=== PATIENT | female | born 1970 | race Caucasian/White ===

== ENCOUNTER 2016-12-16 18:20 | Observation (INO) ==
[2016-12-16] MEDS ORDERED: methylPREDNISolone 125 MG/2 ML VIAL IVP ONE (18:30)
[2016-12-16] MEDS ORDERED: Ipratropium/Albuterol Neb 3 ML IH ONE (18:30)
[2016-12-16] MEDS ORDERED: 0.9 % Sodium Chloride 1,000 ML IVC ONE (18:30)
--- NOTE | 2016-12-16 18:36 | Emergency Department Note ---
Disposition Clinical Impression: Acute exacerbation of chronic obstructive airways disease Disposition: Still a Patient Condition: Good Referrals: NONE,PCP [Primary Care Provider] - Forms: ED Satisfaction Letter SOB HPI - General Chief Complaint: ED Shortness of Breath/Dyspnea Stated Complaint: MISAEL Time Seen by Provider: 12/16/16 18:29 Source: patient, EMS Mode of arrival: EMS Limitations: no limitations Nursing Notes Reviewed: Yes Vital Signs Reviewed: Yes - History of Present Illness Patient presents to the ED via EMS with shortness of breath that started yesterday. Has a history of COPD, continues to smoke, not home O2 dependent. Subjective fever at home, productive yellow cough. Some chest tightness. States she has had pneumonia before and feels like she has it again. No pain or swelling in her legs. No history of DVT or PE. - Related Data Home Medications Medication Instructions Recorded Confirmed Alprazolam [Xanax] 1 mg PO TID 01/21/15 11/09/15 Gabapentin [Neurontin] 300 mg PO TID 01/21/15 11/09/15 Lansoprazole [Prevacid] 30 mg PO DAILY 01/21/15 11/09/15 Fluticasone/Vilanterol [Breo 1 each IH DAILY 07/31/15 11/09/15 Ellipta 200-25 Mcg INH] RisperiDONE-M [RisperDAL M-TAB] 1 mg PO DAILY 07/31/15 11/09/15 Methocarbamol [Robaxin] 500 mg PO Q8HR 11/09/15 11/09/15 Previous Rx's Medication Instructions Recorded Naproxen [EC-Naprosyn] 375 mg PO TID PRN #21 tablet. 11/09/15 Allergies Allergy/AdvReac Type Severity Reaction Status Date / Time morphine Allergy Hives Verified 12/16/16 18:33 Penicillins [PCN] Allergy Hives Verified 12/16/16 18:33 Sulfa (Sulfonamide Allergy Abdominal Verified 12/16/16 18:33 Antibiotics) Pain All systems ED: reviewed and negative except as stated. Constitutional: Reports: fever Cardiovascular: Reports: chest pain Respiratory: Reports: cough, dyspnea, sputum production Gastrointestinal: Denies: abdominal pain Musculoskeletal: Denies: back pain Neurological: Denies: headache Past Medical History - Past Medical History Attestation: Yes The following information was validated with the patient. 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 Absent: normal lung sounds bilaterally - Cardiovascular Cardiovascular exam: Present: regular rate, normal rhythm, normal heart sounds - Abdominal Exam Abdominal exam: Present: soft, Non-Tender. Absent: tenderness, distention, guarding, rebound, rigidity - Extremities Exam Extremities exam: Present: normal inspection, full ROM. Absent: tenderness, pedal edema - Neurological Exam Neurological exam: Present: alert, oriented X3 - Psychiatric Psychiatric exam: Present: normal affect, normal mood - Skin Skin exam: Present: warm, dry, intact, normal color Course - Reevaluation(s) Reevaluation #1: Patient will be signed out to the nighttime team. Vitals stable Vital Signs Temperature 97.8 F 12/16/16 18:24 Pulse Rate 98 12/16/16 18:24 Respiratory Rate 22 12/16/16 18:24 Blood Pressure 112/87 12/16/16 18:24 O2 Sat by Pulse Oximetry 95 12/16/16 18:24 Temperature 97.8 F 12/16/16 18:24 Pulse Rate 98 12/16/16 18:24 Respiratory Rate 20 12/16/16 19:05 Blood Pressure 108/89 12/16/16 19:05 O2 Sat by Pulse Oximetry 97 12/16/16 19:05 Oxygen Delivery Oxygen Delivery Nasal Cannula Shortness of Breath/Dyspnea - Lab Data Result diagrams: 12/16/16 18:46 12/16/16 18:46 Lab Results 12/16/16 12/16/16 12/16/16 Range/Units 18:46 18:46 18:46 WBC 12.4 H (4.3-11.1) K/mcL RBC 4.07 (3.82-4.97) M/mcL Hgb 13.0 (11.5-15.4) g/dL Hct 37.7 (35.3-44.9) % MCV 92.6 (83.0-100.0) fL MCH 31.9 (28.0-33.3) pg MCHC 34.5 (31.6-35.5) g/dL RDW 11.6 (11.5-14.5) % Plt Count 271 (140-400) K/mcL MPV 9.8 (9.4-12.4) fL Immature Gran % 0.2 (0-4) % Seg Neutrophils % 68.0 % Lymphocytes % 24.7 % Monocytes % 5.6 % Eosinophils % 1.3 % Basophils % 0.2 % Neutrophils # 8.5 (1.6-8.9) K/mcL Lymphocytes # 3.1 (0.6-4.6) K/mcL Monocytes # 0.7 (0.0-1.3) K/mcL Eosinophils # 0.2 (0.0-0.6) K/mcL Basophils # 0.0 (0.0-0.2) K/mcL Sodium 136 (136-145) mEq/L Potassium 3.6 (3.5-4.5) mEq/L Chloride 106 (98-109) mEq/L Carbon Dioxide 22 (19-29) mEq/L BUN 11 (7-20) mg/dL Creatinine 0.72 (0.57-1.11) mg/dL Est GFR ( Amer) > 60 (> 60) Est GFR (Non-Af Amer) > 60 (> 60) BUN/Creatinine Ratio 15 (6-26) Glucose 105 H (70-99) mg/dL Calculated Osmolality 282 (280-300) Lactic Acid 1.0 (0.5-2.2) mmol/L Calcium 8.8 (8.6-10.8) mg/dL Troponin I (0-0.03) ng/mL B-Natriuretic Peptide (0-100) pg/mL 12/16/16 12/16/16 Range/Units 18:46 18:46 WBC (4.3-11.1) K/mcL RBC (3.82-4.97) M/mcL Hgb (11.5-15.4) g/dL Hct (35.3-44.9) % MCV (83.0-100.0) fL MCH (28.0-33.3) pg MCHC (31.6-35.5) g/dL RDW (11.5-14.5) % Plt Count (140-400) K/mcL MPV (9.4-12.4) fL Immature Gran % (0-4) % Seg Neutrophils % % Lymphocytes % % Monocytes % % Eosinophils % % Basophils % % Neutrophils # (1.6-8.9) K/mcL Lymphocytes # (0.6-4.6) K/mcL Monocytes # (0.0-1.3) K/mcL Eosinophils # (0.0-0.6) K/mcL Basophils # (0.0-0.2) K/mcL Sodium (136-145) mEq/L Potassium (3.5-4.5) mEq/L Chloride (98-109) mEq/L Carbon Dioxide (19-29) mEq/L BUN (7-20) mg/dL Creatinine (0.57-1.11) mg/dL Est GFR ( Amer) (> 60) Est GFR (Non-Af Amer) (> 60) BUN/Creatinine Ratio (6-26) Glucose (70-99) mg/dL Calculated Osmolality (280-300) Lactic Acid (0.5-2.2) mmol/L Calcium (8.6-10.8) mg/dL Troponin I 0.00 (0-0.03) ng/mL B-Natriuretic Peptide < 10 (0-100) pg/mL Attestation Statement - Attestation Attestation: I, Rogelio Fowler, examined this patient and my medical decision-making was reviewed with the TRIMMING CUTTER/PA/Advanced Practice Nurse/Resident Physician. I agree with the documented findings, disposition and treatment plan as described except to the extent set forth below. 46-year-old female presents to emergency department with increased shortness of breath. Patient feels like this is similar to her previous pneumonia. Patient denies recent syncopal symptoms. Denies chest pain. At the end of my shift patient is pending laboratory and imaging evaluations. Patient will be signed out to Dr. Graves pending reevaluation, imaging, labs, and disposition.
[2016-12-16 18:53] LABS: Basophils % 0.2 %; Eosinophils # 0.2 K/mcL (0.0-0.6); Eosinophils % 1.3 %; Hematocrit 37.7 % (35.3-44.9); Immature Granulocytes % 0.2 % (0-4); Lymphocytes # 3.1 K/mcL (0.6-4.6); Lymphocytes % 24.7 %; Mean Corpuscular HGB Conc 34.5 g/dL (31.6-35.5); Mean Corpuscular Hemoglobin 31.9 pg (28.0-33.3); Mean Corpuscular Volume 92.6 fL (83.0-100.0); Mean Platelet Volume 9.8 fL (9.4-12.4); Monocytes # 0.7 K/mcL (0.0-1.3); Monocytes % 5.6 %; Neutrophils # 8.5 K/mcL (1.6-8.9); Platelet Count 271 K/mcL (140-400); Red Blood Count 4.07 M/mcL (3.82-4.97); Red Cell Distribution Width 11.6 % (11.5-14.5)
[2016-12-16 19:06] LABS: BUN/Creatinine Ratio 15 (6-26); Blood Urea Nitrogen 11 mg/dL (7-20); Calcium 8.8 mg/dL (8.6-10.8); Carbon Dioxide 22 mEq/L (19-29); Chloride 106 mEq/L (98-109); Glucose 105 mg/dL (70-99); Osmolality,Calculated 282 (280-300); Potassium 3.6 mEq/L (3.5-4.5); Sodium 136 mEq/L (136-145); eGFR For African Americans > 60 (> 60); eGFR For Non-African Americans > 60 (> 60)
[2016-12-16 20:00] LABS: Bilirubin,Urine Negative (Negative); Blood,Urine Negative (Negative); Clarity,Urine Clear (Clear); Color,Urine Yellow (Yellow); Glucose,Urine (UA) Normal (Normal); Ketones,Urine Negative (Negative); Leukocyte Esterase,Urine Negative (Negative); Nitrite,Urine Negative (Negative); Protein,Urine Negative (Neg-Trace); Specific Gravity,Urine 1.012 (1.010-1.025); Urobilinogen,Urine Normal (Normal)
[2016-12-16] MEDS ORDERED: Albuterol Neb 7.5 MG, Sodium Chloride for inhalation 12 ML IH ONE (20:14)
--- NOTE | 2016-12-16 20:23 | Emergency Department Note ---
Disposition Clinical Impression: Acute exacerbation of chronic obstructive airways disease Disposition: Admitted As Inpatient Condition: Fair Forms: ED Satisfaction Letter Time of Disposition: 22:47 SOB HPI - General Chief Complaint: ED Shortness of Breath/Dyspnea Stated Complaint: MISAEL Time Seen by Provider: 12/16/16 18:29 Source: patient, EMS Mode of arrival: EMS Limitations: no limitations Nursing Notes Reviewed: Yes Vital Signs Reviewed: Yes - Related Data Home Medications Medication Instructions Recorded Confirmed Alprazolam [Xanax] 1 mg PO TID 01/21/15 11/09/15 Gabapentin [Neurontin] 300 mg PO TID 01/21/15 11/09/15 Lansoprazole [Prevacid] 30 mg PO DAILY 01/21/15 11/09/15 Fluticasone/Vilanterol [Breo 1 each IH DAILY 07/31/15 11/09/15 Ellipta 200-25 Mcg INH] RisperiDONE-M [RisperDAL M-TAB] 1 mg PO DAILY 07/31/15 11/09/15 Methocarbamol [Robaxin] 500 mg PO Q8HR 11/09/15 11/09/15 Previous Rx's Medication Instructions Recorded Naproxen [EC-Naprosyn] 375 mg PO TID PRN #21 tablet. 11/09/15 Allergies Allergy/AdvReac Type Severity Reaction Status Date / Time morphine Allergy Hives Verified 12/16/16 18:33 Penicillins [PCN] Allergy Hives Verified 12/16/16 18:33 Sulfa (Sulfonamide Allergy Abdominal Verified 12/16/16 18:33 Antibiotics) Pain Constitutional: Reports: fever Cardiovascular: Reports: chest pain Respiratory: Reports: cough, dyspnea, sputum production Gastrointestinal: Denies: abdominal pain Musculoskeletal: Denies: back pain Neurological: Denies: headache Past Medical History - Past Medical History Medical history: Reports: asthma, COPD Surgical history: Reports: cholecystectomy, herniorrhaphy Psychiatric history: Reports: anxiety, bipolar, depression, panic disorder 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 Isabel and Dr. Fowler. Please refer to their notes for complete details of the history and physical examination. Patient is a 46-year-old female with history of COPD who continues to smoke. She presents complaining of increased shortness of breath and wheezing and cough for about one week but acutely worse today. She states that she did cough up some blood a few days ago. She is now coughing up green colored sputum. She has had subjective fever. No chest pain. On examination patient has diffuse tight bilateral expiratory wheezes with decreased breath sounds bilaterally. Heart regular rate and rhythm. Abdomen is soft and nontender with normal bowel sounds. No pedal edema. - Reevaluation(s) Reevaluation #1: After receiving IV Medrol and 3 DuoNeb treatments patient was reevaluated. She continues to have diffuse tight bilateral expiratory wheezes. Continues to have labored breathing. She does say that she feels a little better but does not feel that she can go home like this. She does not have home oxygen. Her oxygen cannula was removed and she does maintain an O2 sat of 92%-94% on room air. She was placed back on the oxygen by nasal cannula and will be given an hour-long albuterol nebulizer and reevaluated. Time: 20:10 Reevaluation #2: Patient completed her 1 hour albuterol nebulizer. On reexamination she continues to have diffuse tight bilateral expiratory wheezes with visibly labored respirations. Her oxygen saturation is 92% on room air. Patient still coughing frequently and states she does not feel she can go home like this. I will consult the hospitalist for admission. Time: 22:40 - Consultations Consultation #1: The hospitalist, Dr. Joel, was consulted and accepted admission of the patient. Time: 22:47 Vital Signs Temperature 97.8 F 12/16/16 18:24 Pulse Rate 98 12/16/16 18:24 Respiratory Rate 22 12/16/16 18:24 Blood Pressure 112/87 12/16/16 18:24 O2 Sat by Pulse Oximetry 95 12/16/16 18:24 Temperature 97.8 F 12/16/16 18:24 Pulse Rate 98 12/16/16 22:00 Respiratory Rate 20 12/16/16 20:37 Blood Pressure 109/73 12/16/16 22:00 O2 Sat by Pulse Oximetry 96 12/16/16 22:00 Oxygen Delivery Oxygen Delivery Nasal Cannula Shortness of Breath/Dyspnea - Medical Records Medical records reviewed: Yes I reviewed the patient's medical records. - Lab Data Lab results reviewed: Yes I reviewed the patient's lab results. Result diagrams: 12/16/16 18:46 12/16/16 18:46 Lab Results 12/16/16 12/16/16 12/16/16 Range/Units 18:46 18:46 18:46 WBC 12.4 H (4.3-11.1) K/mcL RBC 4.07 (3.82-4.97) M/mcL Hgb 13.0 (11.5-15.4) g/dL Hct 37.7 (35.3-44.9) % MCV 92.6 (83.0-100.0) fL MCH 31.9 (28.0-33.3) pg MCHC 34.5 (31.6-35.5) g/dL RDW 11.6 (11.5-14.5) % Plt Count 271 (140-400) K/mcL MPV 9.8 (9.4-12.4) fL Immature Gran % 0.2 (0-4) % Seg Neutrophils % 68.0 % Lymphocytes % 24.7 % Monocytes % 5.6 % Eosinophils % 1.3 % Basophils % 0.2 % Neutrophils # 8.5 (1.6-8.9) K/mcL Lymphocytes # 3.1 (0.6-4.6) K/mcL Monocytes # 0.7 (0.0-1.3) K/mcL Eosinophils # 0.2 (0.0-0.6) K/mcL Basophils # 0.0 (0.0-0.2) K/mcL Sodium 136 (136-145) mEq/L Potassium 3.6 (3.5-4.5) mEq/L Chloride 106 (98-109) mEq/L Carbon Dioxide 22 (19-29) mEq/L BUN 11 (7-20) mg/dL Creatinine 0.72 (0.57-1.11) mg/dL Est GFR ( Amer) > 60 (> 60) Est GFR (Non-Af Amer) > 60 (> 60) BUN/Creatinine Ratio 15 (6-26) Glucose 105 H (70-99) mg/dL Calculated Osmolality 282 (280-300) Lactic Acid 1.0 (0.5-2.2) mmol/L Calcium 8.8 (8.6-10.8) mg/dL Troponin I (0-0.03) ng/mL B-Natriuretic Peptide (0-100) pg/mL Urine Color (Yellow) Urine Clarity (Clear) Urine pH (5.0-8.0) pH Units Ur Specific [place] (1.010-1.025) Urine Protein (Neg-Trace) mg/dL Urine Glucose (UA) (Normal) mg/dL Urine Ketones (Negative) mg/dL Urine Blood (Negative) Urine Nitrite (Negative) Urine Bilirubin (Negative) Urine Urobilinogen (Normal) mg/dL Ur Leukocyte Esterase (Negative) Ur Culture Indicated? (NO) 12/16/16 12/16/16 12/16/16 Range/Units 18:46 18:46 19:52 WBC (4.3-11.1) K/mcL RBC (3.82-4.97) M/mcL Hgb (11.5-15.4) g/dL Hct (35.3-44.9) % MCV (83.0-100.0) fL MCH (28.0-33.3) pg MCHC (31.6-35.5) g/dL RDW (11.5-14.5) % Plt Count (140-400) K/mcL MPV (9.4-12.4) fL Immature Gran % (0-4) % Seg Neutrophils % % Lymphocytes % % Monocytes % % Eosinophils % % Basophils % % Neutrophils # (1.6-8.9) K/mcL Lymphocytes # (0.6-4.6) K/mcL Monocytes # (0.0-1.3) K/mcL Eosinophils # (0.0-0.6) K/mcL Basophils # (0.0-0.2) K/mcL Sodium (136-145) mEq/L Potassium (3.5-4.5) mEq/L Chloride (98-109) mEq/L Carbon Dioxide (19-29) mEq/L BUN (7-20) mg/dL Creatinine (0.57-1.11) mg/dL Est GFR ( Amer) (> 60) Est GFR (Non-Af Amer) (> 60) BUN/Creatinine Ratio (6-26) Glucose (70-99) mg/dL Calculated Osmolality (280-300) Lactic Acid (0.5-2.2) mmol/L Calcium (8.6-10.8) mg/dL Troponin I 0.00 (0-0.03) ng/mL B-Natriuretic Peptide < 10 (0-100) pg/mL Urine Color Yellow (Yellow) Urine Clarity Clear (Clear) Urine pH 6.0 (5.0-8.0) pH Units Ur Specific [place] 1.012 (1.010-1.025) Urine Protein Negative (Neg-Trace) mg/dL Urine Glucose (UA) Normal (Normal) mg/dL Urine Ketones Negative (Negative) mg/dL Urine Blood Negative (Negative) Urine Nitrite Negative (Negative) Urine Bilirubin Negative (Negative) Urine Urobilinogen Normal (Normal) mg/dL Ur Leukocyte Esterase Negative (Negative) Ur Culture Indicated? NO (NO) - Radiology Data Radiology results reviewed: Yes I reviewed the patient's radiology results. Chest X-Ray 12/16/16 18:30 IMPRESSION: Negative chest. D/ / Kody Santillan MD / Kody Santillan MD Interpreting Provider: Kody Santillan MD - EKG Data EKG attestation: Yes I reviewed and interpreted this EKG. EKG shows normal: Reports: sinus rhythm Rate: Reports: tachycardia Interpretation: Reports: no acute changes
[2016-12-17] MEDS ORDERED: Naloxone 0.4 MG/ML INJ IVP PRN (00:14)
[2016-12-17] MEDS ORDERED: Acetaminophen 325 MG TABLET PO PRN (00:14)
[2016-12-17] MEDS ORDERED: Ondansetron 4 MG/2 ML VIAL IVP PRN (00:14)
--- NOTE | 2016-12-17 00:20 | Internal Med History&Physical ---
Date of Encounter: 12/17/16 Time of Encounter: 00:15 Assessment and Plan (1) Acute exacerbation of chronic obstructive airways disease Current visit: Yes Status: Acute Acute on chronic respiratory failure - secondary to acute exacerbation of COPD with probable Acute Bronchitis Continue DuoNeb breathing treatment, empiric IV Rocephin IV Solu-Medrol, Symbicort, O2 via nasal cannula Chest x-ray - negative Troponin - negative Cultures - pending Cardiac telemetry, continuous pulse ox, continue to monitor closely (2) Bipolar disorder Current visit: Yes Status: Chronic Continue home dose of Risperdal Qualifiers: Active/Remission status: currently active Current bipolar episode type: depressed Psychotic features: without psychotic features Qualified Code(s): F31.4 - Bipolar disorder, current episode depressed, severe, without psychotic features (3) Tobacco abuse Current visit: Yes Status: Chronic Counseled about cessation, nicotine patch (4) DVT prophylaxis Current visit: Yes Status: Acute Continue heparin subcutaneous Internal Medicine - H&P: HPI Chief complaint: Shortness of breath Admitted From: Emergency Dept Plans for Post Hospital Care: Home History of present illness: Ms. Preston is a 46 year old female COPD, anxiety, depression and bipolar disorder. Patient presents to the ED with complaints of shortness of breath. Examined in the room. Patient is awake and alert. She is in mild distress. She is able to provide history. No family members at bedside. Patient states her shortness of breath started about 1 week ago. Symptoms gradually worsened. She also complains of productive cough with green colored sputum. She does not use oxygen at home. She states she tried to use her nebulizer, but it did not help. She decided to come in today because symptoms were worsening. Patient denies chest pain or palpitations. Denies headache or vomiting or dizziness or fever. Symptoms are worse with exertion. No alleviating factors. No other associated symptoms. No other acute complaints. Initial workup in the ED is significant for acute COPD exacerbation. Patient required multiple DuoNeb breathing treatments. She was also given IV Solu- Medrol. Patient is being admitted for acute COPD exacerbation. CODE STATUS full code. Past Med Surg Social Fam HX - Past Medical History Medical history: asthma, COPD Psychiatric history: anxiety, bipolar, depression, panic disorder - Past Surgical History Surgical History: cholecystectomy, herniorrhaphy - Social History Smoking Status: Current every day smoker Packs per day: 1.5 Smokeless Tobacco Status: No Alcohol use: none Drug use: none - Family History Mother Hx Family Respiratory Disorders: Yes Internal Medicine - H&P: Meds Alprazolam [Xanax] 1 mg PO TID 01/21/15 [History] Gabapentin [Neurontin] 300 mg PO TID 01/21/15 [History] Lansoprazole [Prevacid] 30 mg PO DAILY 01/21/15 [History] Fluticasone/Vilanterol [Breo Ellipta 200-25 Mcg INH] 1 each IH DAILY 07/31/15 [ History] RisperiDONE-M [RisperDAL M-TAB] 1 mg PO DAILY 07/31/15 [History] Methocarbamol [Robaxin] 500 mg PO Q8HR 11/09/15 [History] Naproxen [EC-Naprosyn] 375 mg PO TID PRN #21 tablet. 11/09/15 [Rx] 3 Allergy/AdvReac Type Severity Reaction Status Date / Time morphine Allergy Hives Verified 12/16/16 18:33 Penicillins [PCN] Allergy Hives Verified 12/16/16 18:33 Sulfa (Sulfonamide Allergy Abdominal Verified 12/16/16 18:33 Antibiotics) Pain All Systems PM: A 10-system review of systems was performed and is negative for pertinent findings except as documented above in the HPI. - Constitutional Constitutional: fatigue, no fever(s), no weakness - EENT Eyes: no blurry vision - Cardiovascular Cardiovascular ROS IM: dyspnea, dyspnea on exertion, no chest pain, no claudication, no diaphoresis, no edema, no lightheadedness, no orthopnea, no palpitations, no syncope - Respiratory Respiratory: cough, dyspnea, dyspnea on exertion, wheezing, chest congestion, excessive phlegm production, no hemoptysis - Gastrointestinal Gastrointestinal: no abdominal pain, no bloating, no cramping, no diarrhea, no hematemesis, no hematochezia, no nausea, no vomiting - Genitourinary Genitourinary: no dysuria - Neurological Neurological ROS: no abnormal gait, no confusion, no dizziness, no loss of vision, no numbness, no tingling - Constitutional Vitals: Temp Pulse Resp BP Pulse Ox 98.5 F 106 20 101/63 95 12/17/16 00:08 12/17/16 00:08 12/17/16 00:08 12/17/16 00:08 12/17/16 00:08 General appearance: Present: cachectic, mild distress, A&O X 3, underweight, answers questions appropriately - Head Head exam: Present: atraumatic - Eye Eye exam: Present: EOMI - ENT ENT exam: Present: mucous membranes moist - Respiratory Respiratory exam: Present: prolonged expiratory phase, wheezes (Bilateral), tachypnea. Absent: accessory muscle use, chest wall tenderness, rales, rhonchi - Cardiovascular Cardiovascular exam: Present: RRR, +S1, +S2, tachycardia - GI/Abdominal GI/Abdominal exam: Present: soft. Absent: distended, firm, guarding, tenderness - Extremities Exam Extremities exam: Present: radial pulses palpable and symmetrical. Absent: calf tenderness, cyanotic, pedal edema - Neurological Exam Neurological exam: Present: alert, oriented X3, no focal deficits. Absent: facial droop, speech deficit Internal Med - H&P Results - Labs CBC & Chem 7: 12/17/16 01:11 12/16/16 18:46
[2016-12-17] MEDS: Nicotine 21 MG PATCH.TD24 TD SCH ×2 (00:44→09:13)
[2016-12-17 01:21] LABS: Basophils % 0.1 %; Hematocrit 36.2 % (35.3-44.9); Hemoglobin 12.1 g/dL (11.5-15.4); Immature Granulocytes % 0.4 % (0-4); Lymphocytes # 0.5 K/mcL (0.6-4.6); Lymphocytes % 3.5 %; Mean Corpuscular HGB Conc 33.4 g/dL (31.6-35.5); Mean Corpuscular Hemoglobin 31.5 pg (28.0-33.3); Mean Corpuscular Volume 94.3 fL (83.0-100.0); Mean Platelet Volume 9.9 fL (9.4-12.4); Monocytes % 0.3 %; Neutrophils # 12.4 K/mcL (1.6-8.9); Platelet Count 245 K/mcL (140-400); Red Blood Count 3.84 M/mcL (3.82-4.97); Red Cell Distribution Width 11.9 % (11.5-14.5); Segmented Neutrophils % 95.7 %
[2016-12-17 01:28] LABS: Prothrombin Time 11.2 Seconds (9.4-12.1)
[2016-12-17 01:40] LABS: BUN/Creatinine Ratio 9 (6-26); Blood Urea Nitrogen 7 mg/dL (7-20); Calcium 8.8 mg/dL (8.6-10.8); Carbon Dioxide 18 mEq/L (19-29); Chloride 109 mEq/L (98-109); Glucose 287 mg/dL (70-99); Magnesium 1.6 mg/dL (1.6-2.6); Osmolality,Calculated 296 (280-300); Potassium 3.3 mEq/L (3.5-4.5); Sodium 139 mEq/L (136-145); eGFR For African Americans > 60 (> 60); eGFR For Non-African Americans > 60 (> 60)
[2016-12-17] MEDS: Ipratropium/Albuterol Neb 3 ML IH SCH ×5 (04:32→20:35)
[2016-12-17] MEDS: methylPREDNISolone 125 MG/2 ML VIAL IVP SCH ×4 (05:25→23:19)
[2016-12-17] MEDS: *HR* Heparin 5,000 UNIT/ML VIAL SQ SCH ×2 (05:25→17:00)
[2016-12-17] MEDS: Famotidine 20 MG/2 ML VIAL IVP SCH ×2 (05:25→17:00)
[2016-12-17] MEDS: Budesonide/Formoterol 160/4.5 MDI IH SCH ×2 (07:37→20:35)
[2016-12-17] MEDS: RisperiDONE-M 1 MG TAB.RAPDIS PO SCH (09:12)
[2016-12-17] MEDS: ALPRAZolam 1 MG TABLET PO PRN ×2 (10:18→19:45)
--- NOTE | 2016-12-17 12:31 | Internal Med Progress Note ---
Date of Encounter: 12/17/16 Time of Encounter: 09:14 - Assessment and plan (1) Acute exacerbation of chronic obstructive airways disease Current Visit: Yes Status: Acute Assessment and plan: Patient reports difficulty breathing and increased inhaler use at home for the last week. She is short of breath with inspiratory and expiratory wheezing throughout. Productive cough with cream colored sputum. Chest x-ray is negative, troponins are negative. Cultures are pending Continue duo nebs and continue empiric IV Rocephin Continue IV Solu-Medrol, SymbicorT Continue oxygen as needed to maintain sats greater than 92% Continuous pulse ox (2) Bipolar disorder Current Visit: Yes Status: Chronic Assessment and plan: Chronic. Continue home medications. Qualifiers: Active/Remission status: currently active Current bipolar episode type: depressed Psychotic features: without psychotic features Qualified Code(s): F31.4 - Bipolar disorder, current episode depressed, severe, without psychotic features (3) Tobacco abuse Current Visit: Yes Status: Chronic Assessment and plan: Patient is a current smoker and states she is thinking about quitting. She does not want a nicotine patch at this time, she does not want them for discharge. (4) DVT prophylaxis Current Visit: Yes Status: Acute Assessment and plan: Heparin subcutaneous. - Time Spent With Patient less than 15 minutes - Subjective Interval history: Patient was seen and assessed at approximately 9:15 this morning. She reports increasing shortness of breath and not feeling well for the last week. Productive cough with green/cream colored sputum. She reports fevers and back pain. Discussed smoking cessation, states she will think about it. - Constitutional Vitals: Temp Pulse Resp BP Pulse Ox 97.4 F L 82 16 102/67 97 12/17/16 11:17 12/17/16 11:17 12/17/16 11:33 12/17/16 11:33 12/17/16 11:33 General appearance: Present: cachectic, mild distress, A&O X 3, pleasant, underweight, answers questions appropriately - Head Head exam: Present: atraumatic, normal inspection, normocephalic - Eye Eye exam: Present: normal appearance, conjuntiva pink, sclera anicteric - Neck Neck exam general surgery: Present: normal inspection, supple, trachea midline. Absent: lymphadenopathy, tenderness - Respiratory Respiratory exam: Present: CTAB, wheezes. Absent: accessory muscle use, chest wall tenderness, rales, rhonchi - Cardiovascular Cardiovascular exam: Present: RRR, +S1, +S2. Absent: diastolic murmur, gallop, rubs, systolic murmur - GI/Abdominal GI/Abdominal exam: Present: normal bowel sounds, soft. Absent: distended, hepatomegaly, tenderness - Extremities Exam Extremities exam: Present: normal inspection, warm, radial pulses palpable and symmetrical. Absent: calf tenderness, cyanotic, pedal edema, tenderness - Neurological Exam Neurological exam: Present: alert, oriented X3, no focal deficits, pronater drift. Absent: facial droop, speech deficit - Skin Skin exam: Present: dry, intact, normal color, warm Internal Medicine: Result - Labs CBC & Chem 7: 12/17/16 01:11 12/17/16 01:11 Labs: Short CBC 12/17/16 Range/Units 01:11 WBC 13.0 H (4.3-11.1) K/mcL Hgb 12.1 (11.5-15.4) g/dL Hct 36.2 (35.3-44.9) % Plt Count 245 (140-400) K/mcL Neutrophils # 12.4 H (1.6-8.9) K/mcL BMP 12/17/16 01:11 Sodium 139 Potassium 3.3 L Chloride 109 Carbon Dioxide 18 L BUN 7 Creatinine 0.75 Glucose 287 H Calcium 8.8 - ABG Interpretation ABG results: PT/INR, D-dimer PT 11.2 Seconds (9.4-12.1) 12/17/16 01:11 Consult Discharge Plan - Plan Referrals: NONE,PCP [Primary Care Provider] -
[2016-12-18] MEDS: Ipratropium/Albuterol Neb 3 ML IH SCH ×6 (00:15→20:12)
[2016-12-18 04:31] LABS: Basophils % 0.1 %; Hemoglobin 12.9 g/dL (11.5-15.4); Immature Granulocytes % 0.8 % (0-4); Lymphocytes % 5.2 %; Mean Corpuscular HGB Conc 33.9 g/dL (31.6-35.5); Mean Corpuscular Hemoglobin 32.3 pg (28.0-33.3); Mean Platelet Volume 10.4 fL (9.4-12.4); Monocytes # 0.3 K/mcL (0.0-1.3); Monocytes % 1.7 %; Neutrophils # 17.4 K/mcL (1.6-8.9); Platelet Count 269 K/mcL (140-400); Red Cell Distribution Width 12.2 % (11.5-14.5); Segmented Neutrophils % 92.2 %
[2016-12-18 04:45] LABS: BUN/Creatinine Ratio 25 (6-26); Blood Urea Nitrogen 17 mg/dL (7-20); Calcium 9.2 mg/dL (8.6-10.8); Carbon Dioxide 25 mEq/L (19-29); Chloride 108 mEq/L (98-109); Glucose 152 mg/dL (70-99); Osmolality,Calculated 295 (280-300); Potassium 3.8 mEq/L (3.5-4.5); Sodium 140 mEq/L (136-145); eGFR For African Americans > 60 (> 60); eGFR For Non-African Americans > 60 (> 60)
[2016-12-18] MEDS: Famotidine 20 MG/2 ML VIAL IVP SCH ×2 (06:01→18:26)
[2016-12-18] MEDS: methylPREDNISolone 125 MG/2 ML VIAL IVP SCH ×4 (06:02→23:21)
[2016-12-18] MEDS: *HR* Heparin 5,000 UNIT/ML VIAL SQ SCH ×2 (06:02→18:25)
[2016-12-18] MEDS: Budesonide/Formoterol 160/4.5 MDI IH SCH ×2 (07:51→20:12)
[2016-12-18] MEDS: RisperiDONE-M 1 MG TAB.RAPDIS PO SCH (09:08)
[2016-12-18] MEDS: Nicotine 21 MG PATCH.TD24 TD SCH (09:08)
[2016-12-18] MEDS: ALPRAZolam 1 MG TABLET PO PRN (09:18)
[2016-12-18] MEDS ORDERED: ALPRAZolam 1 MG TABLET PO PRN (10:20)
--- NOTE | 2016-12-18 10:25 | Internal Med Progress Note ---
Date of Encounter: 12/18/16 Time of Encounter: 09:00 - Assessment and plan (1) Acute exacerbation of chronic obstructive airways disease Current Visit: Yes Status: Acute Assessment and plan: Patient reports that she does not feel better. Lungs are diminished throughout , wheezing is decreased today there is better aeration. Patient still has hacking cough that she reports is productive with cream-colored sputum. Chest x- ray is negative, troponins are negative. Blood cultures are negative for growth. Continue duo nebs and continue empiric IV Rocephin Continue IV Solu-Medrol, SymbicorT Continue oxygen as needed to maintain sats greater than 92% Continuous pulse ox (2) Bipolar disorder Current Visit: Yes Status: Chronic Assessment and plan: Chronic. Continue home medications. Qualifiers: Active/Remission status: currently active Current bipolar episode type: depressed Psychotic features: without psychotic features Qualified Code(s): F31.4 - Bipolar disorder, current episode depressed, severe, without psychotic features (3) Tobacco abuse Current Visit: Yes Status: Chronic Assessment and plan: Patient is a current smoker and states she is thinking about quitting. She is wearing a nicotine patch at this time. We will discuss continued smoking cessation prior to discharge. (4) DVT prophylaxis Current Visit: Yes Status: Acute Assessment and plan: Heparin subcutaneous, patient is ambulatory. - Time Spent With Patient less than 15 minutes - Subjective Interval history: Patient was seen and assessed at approximately 9:00 this morning. Patient was sleeping, arouses easily to verbal. Patient states that she is not feeling much better. Lung sounds still remained diminished throughout posterior martin. Patient appears to be her very anxious and has requested multiple times to leave the unit to smoke and walk around. Need to continue to monitor. - Constitutional Vitals: Temp Pulse Resp BP Pulse Ox 97.5 F L 85 16 110/68 93 12/18/16 07:15 12/18/16 07:15 12/18/16 07:52 12/18/16 07:15 12/18/16 07:52 General appearance: Present: cachectic, mild distress, A&O X 3, pleasant, underweight, answers questions appropriately - Head Head exam: Present: atraumatic, normal inspection, normocephalic - Eye Eye exam: Present: normal appearance, conjuntiva pink, sclera anicteric - Neck Neck exam general surgery: Present: supple, trachea midline. Absent: lymphadenopathy, tenderness - Respiratory Respiratory exam: Present: decreased breath sounds, CTAB. Absent: accessory muscle use, chest wall tenderness, rales, respiratory distress, rhonchi, wheezes - Cardiovascular Cardiovascular exam: Present: RRR, +S1, +S2. Absent: diastolic murmur, gallop, rubs, systolic murmur - GI/Abdominal GI/Abdominal exam: Present: normal bowel sounds, soft, no peritoneal signs. Absent: distended, hepatomegaly, tenderness - Extremities Exam Extremities exam: Present: normal capillary refill, normal inspection, warm, radial pulses palpable and symmetrical. Absent: calf tenderness, cyanotic, pedal edema, tenderness - Neurological Exam Neurological exam: Present: alert, oriented X3, no focal deficits. Absent: facial droop, speech deficit - Skin Skin exam: Present: dry, intact, normal color, warm. Absent: rash Internal Medicine: Result - Labs CBC & Chem 7: 12/18/16 03:43 12/18/16 03:43 Labs: Short CBC 12/18/16 Range/Units 03:43 WBC 18.9 H (4.3-11.1) K/mcL Hgb 12.9 (11.5-15.4) g/dL Hct 38.0 (35.3-44.9) % Plt Count 269 (140-400) K/mcL Neutrophils # 17.4 H (1.6-8.9) K/mcL BMP 12/18/16 03:43 Sodium 140 Potassium 3.8 Chloride 108 Carbon Dioxide 25 BUN 17 D Creatinine 0.67 Glucose 152 H Calcium 9.2 - ABG Interpretation ABG results: PT/INR, D-dimer PT 11.2 Seconds (9.4-12.1) 12/17/16 01:11 Consult Discharge Plan - Plan Referrals: NONE,PCP [Primary Care Provider] -
[2016-12-18] MEDS ORDERED: Gabapentin 300 MG CAPSULE PO SCH ×2 (15:00→21:00)
[2016-12-18] MEDS ORDERED: Mirtazapine 15 MG TABLET PO SCH (21:00)
--- NOTE | 2016-12-18 21:49 | Electrocardiograph Report ---
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
[2016-12-19] MEDS: Ipratropium/Albuterol Neb 3 ML IH SCH ×2 (00:05→04:01)
[2016-12-19 05:10] VITALS: BP 133/74
[2016-12-19] MEDS: *HR* Heparin 5,000 UNIT/ML VIAL SQ SCH (05:23)
[2016-12-19] MEDS: Famotidine 20 MG/2 ML VIAL IVP SCH (05:24)
[2016-12-19] MEDS: methylPREDNISolone 125 MG/2 ML VIAL IVP SCH (05:24)
[2016-12-19 07:03] LABS: Basophils % 0.1 %; Hematocrit 37.4 % (35.3-44.9); Hemoglobin 12.5 g/dL (11.5-15.4); Immature Granulocytes % 1.8 % (0-4); Lymphocytes # 0.8 K/mcL (0.6-4.6); Lymphocytes % 3.7 %; Mean Corpuscular HGB Conc 33.4 g/dL (31.6-35.5); Mean Corpuscular Hemoglobin 32.1 pg (28.0-33.3); Mean Corpuscular Volume 96.1 fL (83.0-100.0); Mean Platelet Volume 10.7 fL (9.4-12.4); Monocytes # 0.3 K/mcL (0.0-1.3); Monocytes % 1.3 %; Neutrophils # 19.7 K/mcL (1.6-8.9); Platelet Count 286 K/mcL (140-400); Red Blood Count 3.89 M/mcL (3.82-4.97); Red Cell Distribution Width 12.5 % (11.5-14.5); Segmented Neutrophils % 93.1 %
[2016-12-19 07:20] LABS: BUN/Creatinine Ratio 21 (6-26); Blood Urea Nitrogen 16 mg/dL (7-20); Calcium 8.8 mg/dL (8.6-10.8); Carbon Dioxide 21 mEq/L (19-29); Chloride 109 mEq/L (98-109); Glucose 260 mg/dL (70-99); Osmolality,Calculated 306 (280-300); Potassium 3.7 mEq/L (3.5-4.5); Sodium 143 mEq/L (136-145); eGFR For African Americans > 60 (> 60); eGFR For Non-African Americans > 60 (> 60)
== END 2016-12-19 07:07 | disposition left against medical advice (07) ==
LOC: 3BNU 18:20 → EMEROO 18:20 → 3BNU 23:57
PROVIDERS: ADMIT Family Medicine; ATTEND Registered Nurse

== ENCOUNTER 2016-12-20 20:44 | Observation (INO) ==
[2016-12-20] MEDS ORDERED: methylPREDNISolone 125 MG/2 ML VIAL IVP ONE (20:48)
[2016-12-20] MEDS ORDERED: levoFLOXacin 500 MG TABLET PO ONE (20:48)
[2016-12-20] MEDS ORDERED: Ipratropium/Albuterol Neb 3 ML IH ONE (20:49)
--- NOTE | 2016-12-20 20:54 | Emergency Department Note ---
Disposition Clinical Impression: COPD exacerbation Disposition: Admitted As Inpatient Condition: Fair Time of Disposition: 23:28 SOB HPI - General Chief Complaint: ED Shortness of Breath/Dyspnea Stated Complaint: erik Time Seen by Provider: 12/20/16 20:47 Source: patient, EMS Mode of arrival: EMS Limitations: no limitations Nursing Notes Reviewed: Yes Vital Signs Reviewed: Yes - History of Present Illness Patient is a 46-year-old female with past medical history of COPD, smoking history. She presents today due to shortness of breath, cough, wheeze. She says that over the past 2 weeks, she has had increased shortness of breath and wheeze. She followed up with her primary care physician yesterday and was given a prescription for 60 mg prednisone daily. She is also given a new steroid inhaler in addition to her usual regimen of albuterol inhaler daily. She said at that time, primary care physician wanted to admit her to the hospital but she refused. She presents today via EMS due to worsening wheeze, shortness of breath, fever, cough. She also reports that she had an episode of chest pain earlier today that lasted 15 minutes, was dull pain that radiated from her right chest to her left chest. Denies any other radiation. Denies any nausea, vomiting, sweating during that episode. She does state that she fell down and thought she was going to pass out during that episode. However, she says that she has had episodes like this in the past. - Related Data Home Medications Medication Instructions Recorded Confirmed Alprazolam [Xanax] 1 mg PO BID PRN 01/21/15 12/20/16 Gabapentin [Neurontin] 300 mg PO BID 01/21/15 12/20/16 Lansoprazole [Prevacid] 30 mg PO DAILY 01/21/15 12/20/16 Fluticasone/Vilanterol [Breo 1 each IH DAILY 07/31/15 12/20/16 Ellipta 200-25 Mcg INH] Methocarbamol [Robaxin] 500 mg PO QID PRN 11/09/15 12/20/16 Gabapentin [Neurontin] 600 mg PO HS 12/17/16 12/20/16 Mirtazapine [Remeron] 15 mg PO HS 12/17/16 12/20/16 Albuterol Neb [Proventil Neb] 2.5 mg IH TID PRN 12/20/16 12/20/16 Albuterol Sulfate [Ventolin Hfa] 2 puff IH Q4H PRN 12/20/16 12/20/16 Doxycycline Hyclate [Morgidox] 100 mg PO BID 12/20/16 12/20/16 Ipratropium/Albuterol Neb [Duoneb] 3 ml IH Q6HR PRN 12/20/16 12/20/16 Lactose-Reduced Food [Ensure 1 bottle PO TID 12/20/16 12/20/16 Liquid] predniSONE [PredniSONE] See Taper PO DAILY 12/20/16 12/20/16 Allergies Allergy/AdvReac Type Severity Reaction Status Date / Time morphine Allergy Hives Verified 12/17/16 11:32 Penicillins [PCN] Allergy Hives Verified 12/17/16 11:32 Sulfa (Sulfonamide AdvReac Abdominal Verified 12/17/16 11:32 Antibiotics) Pain All systems ED: reviewed and negative except as stated. Constitutional: Reports: fever Cardiovascular: Reports: chest pain Respiratory: Reports: cough, dyspnea, wheezes, sputum production Gastrointestinal: Denies: abdominal pain, nausea, vomiting, diarrhea Past Medical History - Past Medical History Attestation: Yes The following information was validated with the patient. 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 - Social History Smoking Status: Current every day smoker Smokeless Tobacco Status: No Alcohol use: Reports: none Drug use: Reports: none Physical Exam - General Limitations: no limitations General appearance: alert, in no apparent distress - Head Head exam: atraumatic, normocephalic, normal inspection - Eye Eye exam: Present: normal appearance, PERRL, EOMI - ENT ENT exam: normal exam, normal oropharynx, mucous membranes moist - Neck Neck exam: Present: normal inspection, full ROM, trachea midline - Chest Chest inspection: Present: normal inspection, symmetric chest wall rise - Respiratory Respiratory exam: Present: other (Significant wheeze and tightness throughout all lung martin) - Cardiovascular Cardiovascular exam: Present: normal rhythm, tachycardia, normal heart sounds - Abdominal Exam Abdominal exam: Present: soft, Non-Tender. Absent: tenderness, distention, guarding, rebound, rigidity - Extremities Exam Extremities exam: Present: normal inspection, full ROM. Absent: pedal edema - Neurological Exam Neurological exam: Present: alert, oriented X3 - Psychiatric Psychiatric exam: Present: normal affect, normal mood - Skin Skin exam: Present: warm, dry, intact, normal color Course Course Narrative: Patient was tachycardic on exam. The rest of the vitals were within normal limits. She is 95% on room air. She has significant wheeze throughout all lung martin. Otherwise, the rest of the physical exam was fairly benign. We will give the patient DuoNeb, steroids. Will obtain EKG, CXR, basic bloodwork. Will also give antibiotics. 23:26 CBC and BMP within normal limits. Troponin negative. EKG shows: Sinus tachycardia. Rate 101. RI 135. QRS 77. QTC 401. Normal axis. No acute ST elevation or depression. She does have a T-wave inversion in V2. Chest x-ray shows no acute cardiopulmonary process. Patient was given DuoNeb and Levaquin here in the department. We will admit for COPD exacerbation. Currently requiring 2L O2 to maintain sat >90%, does not wear home O2 Chest X-Ray 12/20/16 20:48 IMPRESSION: 1. No acute cardiopulmonary abnormality. 2. Stable findings of emphysema and chronic obstructive physiology. D/ / Satish Elise MD / Satish Elise MD Interpreting Provider: Satish Elise MD Vital Signs Temperature 97.9 F 12/20/16 20:46 Pulse Rate 101 12/20/16 20:46 Respiratory Rate 24 12/20/16 20:46 Blood Pressure 125/86 12/20/16 20:46 O2 Sat by Pulse Oximetry 95 12/20/16 20:46 Temperature 97.9 F 12/20/16 20:46 Pulse Rate 103 12/20/16 21:53 Respiratory Rate 24 12/20/16 21:53 Blood Pressure 125/86 12/20/16 20:46 O2 Sat by Pulse Oximetry 94 12/20/16 21:53 Oxygen Delivery Oxygen Delivery Room Air Shortness of Breath/Dyspnea - MDM Narrative Medical decision making narrative: CBC and BMP within normal limits. Troponin negative. EKG shows: Sinus tachycardia. Rate 101. RI 135. QRS 77. QTC 401. Normal axis. No acute ST elevation or depression. She does have a T-wave inversion in V2. Chest x-ray shows no acute cardiopulmonary process. Patient was given DuoNeb and Levaquin here in the department. We will admit for COPD exacerbation. Currently requiring 2L O2 to maintain sat >90%, does not wear home O2 - Medical Records Medical records reviewed: Yes I reviewed the patient's medical records. - Lab Data Lab results reviewed: Yes I reviewed the patient's lab results. Result diagrams: 12/20/16 21:26 12/20/16 21:26 Lab Results 12/20/16 12/20/16 12/20/16 Range/Units 21:26 21: 21:26 WBC 10.8 (4.3-11.1) K/mcL RBC 3.92 (3.82-4.97) M/mcL Hgb 12.6 (11.5-15.4) g/dL Hct 37.3 (35.3-44.9) % MCV 95.2 (83.0-100.0) fL MCH 32.1 (28.0-33.3) pg MCHC 33.8 (31.6-35.5) g/dL RDW 12.2 (11.5-14.5) % Plt Count 297 (140-400) K/mcL MPV 9.9 (9.4-12.4) fL Immature Gran % 1.5 (0-4) % Seg Neutrophils % 76.3 % Lymphocytes % 15.7 % Monocytes % 6.3 % Eosinophils % 0.0 % Basophils % 0.2 % Neutrophils # 8.2 (1.6-8.9) K/mcL Lymphocytes # 1.7 (0.6-4.6) K/mcL Monocytes # 0.7 (0.0-1.3) K/mcL Eosinophils # 0.0 (0.0-0.6) K/mcL Basophils # 0.0 (0.0-0.2) K/mcL Immature Plt Fraction 3.5 (1.1-6.1) % Sodium 139 (136-145) mEq/L Potassium 4.1 (3.5-4.5) mEq/L Chloride 105 (98-109) mEq/L Carbon Dioxide 25 (19-29) mEq/L BUN 12 (7-20) mg/dL Creatinine 0.71 (0.57-1.11) mg/dL Est GFR ( Amer) > 60 (> 60) Est GFR (Non-Af Amer) > 60 (> 60) BUN/Creatinine Ratio 17 (6-26) Glucose 158 H (70-99) mg/dL Calculated Osmolality 291 (280-300) Lactic Acid (0.5-2.2) mmol/L Calcium 8.9 (8.6-10.8) mg/dL Troponin I 0.01 (0-0.03) ng/mL B-Natriuretic Peptide (0-100) pg/mL 12/20/16 12/20/16 Range/Units 21:26 21:26 WBC (4.3-11.1) K/mcL RBC (3.82-4.97) M/mcL Hgb (11.5-15.4) g/dL Hct (35.3-44.9) % MCV (83.0-100.0) fL MCH (28.0-33.3) pg MCHC (31.6-35.5) g/dL RDW (11.5-14.5) % Plt Count (140-400) K/mcL MPV (9.4-12.4) fL Immature Gran % (0-4) % Seg Neutrophils % % Lymphocytes % % Monocytes % % Eosinophils % % Basophils % % Neutrophils # (1.6-8.9) K/mcL Lymphocytes # (0.6-4.6) K/mcL Monocytes # (0.0-1.3) K/mcL Eosinophils # (0.0-0.6) K/mcL Basophils # (0.0-0.2) K/mcL Immature Plt Fraction (1.1-6.1) % Sodium (136-145) mEq/L Potassium (3.5-4.5) mEq/L Chloride (98-109) mEq/L Carbon Dioxide (19-29) mEq/L BUN (7-20) mg/dL Creatinine (0.57-1.11) mg/dL Est GFR ( Amer) (> 60) Est GFR (Non-Af Amer) (> 60) BUN/Creatinine Ratio (6-26) Glucose (70-99) mg/dL Calculated Osmolality (280-300) Lactic Acid 2.2 (0.5-2.2) mmol/L Calcium (8.6-10.8) mg/dL Troponin I (0-0.03) ng/mL B-Natriuretic Peptide < 10 (0-100) pg/mL - Radiology Data Radiology results reviewed: Yes I reviewed the patient's radiology results. Chest X-Ray 12/20/16 20:48 IMPRESSION: 1. No acute cardiopulmonary abnormality. 2. Stable findings of emphysema and chronic obstructive physiology. D/ / Satish Elise MD / Satish Elise MD Interpreting Provider: Satish Elise MD - EKG Data EKG attestation: Yes I reviewed and interpreted this EKG. EKG results narrative: 12/20/2016 at 20:55. Sinus tachycardia. Rate 101. RI 135. QRS 77. QTC 401. Normal axis. No acute ST elevation or depression. She does have a T-wave inversion in V2. S.B.A.R. - S.B.A.R. Situation: Demographics, MOA Background: Presenting Complaint, Relevant PMH, Meds, & Allergies Assessment: Vital Signs, Course and respsone to treatment, Exam Concerns, Patient/Family Expectation, Pertinant Lab Results Recommendation: Barrier(s) to disposition, Recommendation based on pending studies, treatments, or consults S.B.A.RRocco Report Given to: Dr. Demarcus [facility] Time: 23:28 Attestation Statement - Attestation Attestation: I, Quentin Albert DO, examined this patient [id number] and my medical decision-making was reviewed with Dr. Hipolito Leigh, Resident Physician. I agree with the documented findings, disposition and treatment plan as described except to the extent set forth below. Please see my progress notes for details. 38-year-old female with known COPD and emphysema presents to emergency room after being discharged from the hospital 2 days ago with what appears to be another acute exacerbation of her COPD. She is hypoxic to An tachycardic on presentation. She had diffuse wheezing bilateral lung martin. Patient was recommended from her primary care provider yesterday to come into the emergency room for evaluation and admission but she refused to do so at that time because she did not want to be admitted to the hospital patient otherwise denies any other symptoms or injury at this time. Physical exam shows a very thin frail appearing female in some moderate respiratory distress. She did a chest discomfort Afternoon. EKG chest x-ray labs aspirin steroids and breathing treatments to be given. Antibiotic regimen to be ordered as needed. Patient will most likely require admission for definitive evaluation and management of another COPD exacerbation. See detailed documentation of physical exam, medical intervention, medical decision making process and admission for consultation and evaluation resident physician's note
[2016-12-20 21:40] LABS: Basophils % 0.2 %; Hematocrit 37.3 % (35.3-44.9); Hemoglobin 12.6 g/dL (11.5-15.4); Immature Granulocytes % 1.5 % (0-4); Immature Platelets 3.5 % (1.1-6.1); Lymphocytes # 1.7 K/mcL (0.6-4.6); Lymphocytes % 15.7 %; Mean Corpuscular HGB Conc 33.8 g/dL (31.6-35.5); Mean Corpuscular Hemoglobin 32.1 pg (28.0-33.3); Mean Corpuscular Volume 95.2 fL (83.0-100.0); Mean Platelet Volume 9.9 fL (9.4-12.4); Monocytes # 0.7 K/mcL (0.0-1.3); Monocytes % 6.3 %; Neutrophils # 8.2 K/mcL (1.6-8.9); Platelet Count 297 K/mcL (140-400); Red Blood Count 3.92 M/mcL (3.82-4.97); Red Cell Distribution Width 12.2 % (11.5-14.5); Segmented Neutrophils % 76.3 %
[2016-12-20 21:50] LABS: BUN/Creatinine Ratio 17 (6-26); Blood Urea Nitrogen 12 mg/dL (7-20); Calcium 8.9 mg/dL (8.6-10.8); Carbon Dioxide 25 mEq/L (19-29); Chloride 105 mEq/L (98-109); Glucose 158 mg/dL (70-99); Osmolality,Calculated 291 (280-300); Potassium 4.1 mEq/L (3.5-4.5); Sodium 139 mEq/L (136-145); eGFR For African Americans > 60 (> 60); eGFR For Non-African Americans > 60 (> 60)
[2016-12-21] MEDS ORDERED: Naloxone 0.4 MG/ML INJ IVP PRN (01:58)
[2016-12-21] MEDS ORDERED: Ondansetron 4 MG/2 ML VIAL IVP PRN (01:58)
[2016-12-21] MEDS ORDERED: Methocarbamol 500 MG TABLET PO PRN (02:00)
[2016-12-21] MEDS ORDERED: ALPRAZolam 1 MG TABLET PO PRN (02:00)
[2016-12-21] MEDS ORDERED: Albuterol 2.5 MG/3 ML NEBULIZER IH PRN (02:00)
[2016-12-21] MEDS ORDERED: Nicotine 21 MG PATCH.TD24 TD PRN (02:02)
[2016-12-21 03:26] LABS: Basophils % 0.2 %; Hematocrit 37.1 % (35.3-44.9); Hemoglobin 12.6 g/dL (11.5-15.4); Immature Granulocytes % 1.2 % (0-4); Lymphocytes % 8.7 %; Mean Corpuscular Hemoglobin 32.4 pg (28.0-33.3); Mean Corpuscular Volume 95.4 fL (83.0-100.0); Mean Platelet Volume 9.7 fL (9.4-12.4); Monocytes # 0.2 K/mcL (0.0-1.3); Monocytes % 1.5 %; Neutrophils # 10.5 K/mcL (1.6-8.9); Platelet Count 265 K/mcL (140-400); Red Blood Count 3.89 M/mcL (3.82-4.97); Segmented Neutrophils % 88.4 %
[2016-12-21 03:31] LABS: BUN/Creatinine Ratio 16 (6-26); Blood Urea Nitrogen 11 mg/dL (7-20); Carbon Dioxide 26 mEq/L (19-29); Chloride 105 mEq/L (98-109); Glucose 164 mg/dL (70-99); Magnesium 2.1 mg/dL (1.6-2.6); Osmolality,Calculated 289 (280-300); Potassium 4.2 mEq/L (3.5-4.5); Sodium 138 mEq/L (136-145); eGFR For African Americans > 60 (> 60); eGFR For Non-African Americans > 60 (> 60)
--- NOTE | 2016-12-21 04:16 | Internal Med History&Physical ---
Date of Encounter: 12/21/16 Time of Encounter: 02:05 Assessment and Plan (1) Acute exacerbation of chronic obstructive airways disease Current visit: No Status: Acute continue systemic steroids and bronchodilator support O2 supplementation IV abx will closely monitor respiratory status CXR: no acute cardiopulmonary abnormality (2) Bipolar disorder Current visit: No Status: Chronic continue home meds Qualifiers: Active/Remission status: currently active Current bipolar episode type: depressed Psychotic features: without psychotic features Qualified Code(s): F31.4 - Bipolar disorder, current episode depressed, severe, without psychotic features (3) Tobacco abuse Current visit: No Status: Chronic smoking cessation counseling provided patient not ready to quit at this time nicotine supplementation provided (4) DVT prophylaxis Current visit: No Status: Acute Heparin SQ Internal Medicine - H&P: HPI Chief complaint: shortness of breath Admitted From: Home Plans for Post Hospital Care: Home History of present illness: Ms. Preston is a 46 year old female with PMH of COPD, anxiety, bipolar disorder who presented to the ER for shortness of breath. Patient was recently hospitalized for the same complain and was being treated for COPD exacerbation. She left [facility] on 12/18/16 because she was not allowed to go outside and smoke. Pt states she does not wear home oxygen but despite her home nebulizer treatments, her shortness of breath persisted and she had difficulty breathing which prompted her visit to the ER. She received IV steroids, bronchodilators in the ER with improvement in her presenting symptoms. At this time, she is resting in bed and reports of feeling better, currently saturating well on room air. Denies any headache, chest pain, abd pain, n/v, fever, or chills. Extensive smoking cessation counseling is provided and patient is not ready to quit at this time. She is made aware that while she is hospitalized, she can not leave the unit to smoke, she is willing to comply at this time. Code status: Full code Social history: Every day smoker (1-2 ppd) Past Med Surg Social Fam HX - Past Medical History Medical history: asthma, COPD Psychiatric history: anxiety, bipolar, depression, panic disorder - Past Surgical History Surgical History: cholecystectomy, herniorrhaphy - Social History Smoking Status: Current every day smoker Smokeless Tobacco Status: No Alcohol use: none Drug use: none - Family History Mother Hx Family Respiratory Disorders: Yes Internal Medicine - H&P: Meds Alprazolam [Xanax] 1 mg PO BID PRN 01/21/15 [History] Gabapentin [Neurontin] 300 mg PO BID 01/21/15 [History] Lansoprazole [Prevacid] 30 mg PO DAILY 01/21/15 [History] Fluticasone/Vilanterol [Breo Ellipta 200-25 Mcg INH] 1 each IH DAILY 07/31/15 [ History] Methocarbamol [Robaxin] 500 mg PO QID PRN 11/09/15 [History] Gabapentin [Neurontin] 600 mg PO HS 12/17/16 [History] Mirtazapine [Remeron] 15 mg PO HS 12/17/16 [History] Albuterol Neb [Proventil Neb] 2.5 mg IH TID PRN 12/20/16 [History] Albuterol Sulfate [Ventolin Hfa] 2 puff IH Q4H PRN 12/20/16 [History] Doxycycline Hyclate [Morgidox] 100 mg PO BID 12/20/16 [History] Ipratropium/Albuterol Neb [Duoneb] 3 ml IH Q6HR PRN 12/20/16 [History] Lactose-Reduced Food [Ensure Liquid] 1 bottle PO TID 12/20/16 [History] predniSONE [PredniSONE] See Taper PO DAILY 12/20/16 [History] 3 Allergy/AdvReac Type Severity Reaction Status Date / Time morphine Allergy Hives Verified 12/17/16 11:32 Penicillins [PCN] Allergy Hives Verified 12/17/16 11:32 Sulfa (Sulfonamide AdvReac Abdominal Verified 12/17/16 11:32 Antibiotics) Pain All Systems PM: A 10-system review of systems was performed and is negative for pertinent findings except as documented above in the HPI. - Constitutional Constitutional: as per HPI - Constitutional Vitals: Temp Pulse Resp BP Pulse Ox 98.0 F 81 18 114/68 95 12/21/16 03:10 12/21/16 03:10 12/21/16 03:10 12/21/16 03:10 12/21/16 03:10 General appearance: Present: A&O X 3, no acute distress, answers questions appropriately - Head Head exam: Present: atraumatic, normocephalic - Eye Eye exam: Present: conjuntiva pink, sclera anicteric - Respiratory Respiratory exam: Present: decreased breath sounds. Absent: accessory muscle use, respiratory distress, wheezes, tachypnea - Cardiovascular Cardiovascular exam: Present: RRR, +S1, +S2. Absent: diastolic murmur, gallop, rubs, systolic murmur - GI/Abdominal GI/Abdominal exam: Present: normal bowel sounds, soft, no peritoneal signs. Absent: distended, tenderness - Extremities Exam Extremities exam: Present: warm, radial pulses palpable and symmetrical. Absent : calf tenderness, cyanotic, pedal edema - Neurological Exam Neurological exam: Present: alert, oriented X3 - Psychiatric Psychiatric exam: Present: normal affect, normal mood Internal Med - H&P Results - Labs CBC & Chem 7: 12/21/16 03:08 12/21/16 03:08 Labs: Short CBC 12/21/16 Range/Units 03:08 WBC 11.9 H (4.3-11.1) K/mcL Hgb 12.6 (11.5-15.4) g/dL Hct 37.1 (35.3-44.9) % Plt Count 265 (140-400) K/mcL Neutrophils # 10.5 H (1.6-8.9) K/mcL BMP 12/21/16 03:08 Sodium 138 Potassium 4.2 Chloride 105 Carbon Dioxide 26 BUN 11 Creatinine 0.69 Glucose 164 H Calcium 9.0
[2016-12-21] MEDS: Ipratropium/Albuterol Neb 3 ML IH SCH ×3 (04:33→11:15)
[2016-12-21] MEDS ORDERED: *HR* Heparin 5,000 UNIT/ML VIAL SQ SCH (06:00)
[2016-12-21] MEDS ORDERED: MethylPREDNISolone 40 MG/ML VIAL IVP SCH (08:00)
[2016-12-21 08:10] VITALS: BP 97/60
[2016-12-21] MEDS ORDERED: 0.9 % Sodium Chloride 1,000 ML IVC SCH (08:15)
[2016-12-21] MEDS ORDERED: Gabapentin 300 MG CAPSULE PO SCH ×2 (09:00→21:00)
[2016-12-21] MEDS ORDERED: NON-FORMULARY MEDICATION 1 EACH EACH (Lactose-Reduced Food [Ensure Liquid] 1 BOTTLE) PO SCH (09:00)
[2016-12-21] MEDS ORDERED: Breo Ellipta 200-25 Mcg IH SCH (09:00)
[2016-12-21] MEDS ORDERED: Levofloxacin 500 MG/100 ML 500 MG/100 ML BAG IVPB SCH (09:00)
[2016-12-21] MEDS ORDERED: Mirtazapine 15 MG TABLET PO SCH (21:00)
--- NOTE | 2016-12-25 08:34 | Electrocardiograph Report ---
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
== END 2016-12-21 12:19 | disposition left against medical advice (07) ==
LOC: 3NENU 20:44 → EMEROO 20:44 → 3NENU 12-21 00:58
PROVIDERS: ADMIT Internal Medicine; ATTEND Internal Medicine

== ENCOUNTER 2017-11-10 15:22 | Inpatient (IN) ==
--- NOTE | 2017-11-10 15:47 | Emergency Department Note ---
Disposition Clinical Impression: Suicidal ideation Disposition: Admitted As Inpatient Referrals: NONE,PCP [Primary Care Provider] - Forms: ED Satisfaction Letter Time of Disposition: 17:05 General Adult HPI - General Chief complaint: ED Psychiatric Symptoms Stated complaint: SI Time Seen by Provider: 11/10/17 15:26 Source: EMS - History of Present Illness Pain Scale: 0 - Related Data Home Medications Medication Instructions Recorded Confirmed Alprazolam [Xanax] 1 mg PO BID PRN 01/21/15 11/10/17 Gabapentin [Neurontin] 300 mg PO BID 01/21/15 11/10/17 Fluticasone/Vilanterol [Breo 1 each IH DAILY 07/31/15 11/10/17 Ellipta 200-25 Mcg INH] Methocarbamol [Robaxin] 500 mg PO QID PRN 11/09/15 11/10/17 Gabapentin [Neurontin] 600 mg PO HS 12/17/16 11/10/17 Mirtazapine [Remeron] 15 mg PO HS 12/17/16 11/10/17 Albuterol Sulfate [Ventolin Hfa] 2 puff IH Q4H PRN 12/20/16 11/10/17 Tizanidine HCl [Zanaflex] 2 mg PO TID 11/10/17 11/10/17 Allergies Allergy/AdvReac Type Severity Reaction Status Date / Time morphine Allergy Hives Verified 06/19/17 15:31 Penicillins [PCN] Allergy Hives Verified 06/19/17 15:31 Sulfa (Sulfonamide AdvReac Abdominal Verified 06/19/17 15:31 Antibiotics) Pain Past Medical History - Past Medical History Medical history: Reports: asthma, COPD, GERD Surgical history: Reports: cholecystectomy, herniorrhaphy Psychiatric history: Reports: anxiety, bipolar, depression, panic disorder 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 - Social History Smoking Status: Current every day smoker Smokeless Tobacco Status: No Alcohol use: Reports: none Drug use: Reports: none Physical Exam - General General appearance: alert, in no apparent distress Course Vital Signs Temperature 98.0 F 11/10/17 15:23 Pulse Rate 86 11/10/17 15:23 Respiratory Rate 14 11/10/17 15:23 Blood Pressure 124/79 11/10/17 15:23 O2 Sat by Pulse Oximetry 98 08/11/18 15:23 Temperature 98.0 F 11/10/17 15:23 Pulse Rate 86 11/10/17 15:23 Respiratory Rate 14 11/10/17 15:23 Blood Pressure 124/79 11/10/17 15:23 O2 Sat by Pulse Oximetry 98 11/10/17 15:23 Oxygen Delivery Oxygen Delivery Room Air Medical Decision Making - Lab Data Result diagrams: 11/10/17 16:12 11/10/17 16:12 Lab Results 11/10/17 11/10/17 11/10/17 Range/Units 15:30 15:30 16:12 WBC 6.0 (4.3-11.1) K/mcL RBC 4.45 (3.82-4.97) M/mcL Hgb 14.9 (11.5-15.4) g/dL Hct 42.1 (35.3-44.9) % MCV 94.6 (83.0-100.0) fL MCH 33.5 H (28.0-33.3) pg MCHC 35.4 (31.6-35.5) g/dL RDW 11.9 (11.5-14.5) % Plt Count 210 (140-400) K/mcL MPV 10.5 (9.4-12.4) fL Immature Gran % 0.2 (0-4) % Seg Neutrophils % 49.3 % Lymphocytes % 42.8 % Monocytes % 5.0 % Eosinophils % 2.2 % Basophils % 0.5 % Neutrophils # 2.9 (1.6-8.9) K/mcL Lymphocytes # 2.6 (0.6-4.6) K/mcL Monocytes # 0.3 (0.0-1.3) K/mcL Eosinophils # 0.1 (0.0-0.6) K/mcL Basophils # 0.0 (0.0-0.2) K/mcL Sodium (136-145) mEq/L Potassium (3.5-5.1) mEq/L Chloride (98-107) mEq/L Carbon Dioxide (23-29) mEq/L BUN (6-20) mg/dL Creatinine (0.60-1.20) mg/dL Est GFR ( Amer) (> 60) Est GFR (Non-Af Amer) (> 60) BUN/Creatinine Ratio (6-26) Glucose (70-105) mg/dL Calculated Osmolality (280-300) Calcium (8.6-10.3) mg/dL Urine Color Yellow (Yellow) Urine Clarity Clear (Clear) Urine pH 6.5 (5.0-8.0) pH Units Ur Specific [place] 1.010 (1.010-1.025) Urine Protein Negative (Neg-Trace) mg/dL Urine Glucose (UA) Normal (Normal) mg/dL Urine Ketones Negative (Negative) mg/dL Urine Blood Negative (Negative) Urine Nitrite Negative (Negative) Urine Bilirubin Negative (Negative) Urine Urobilinogen Normal (Normal) mg/dL Ur Leukocyte Esterase Negative (Negative) Salicylates (15.0-30.0) mg/dL Urine Opiates Screen Negative (Kcndqj=168) ng/mL Acetaminophen (10-20) mcg/mL Ur Barbiturates Screen Negative (Gpxgdn=749) ng/mL Ur Phencyclidine Scrn Negative (Cutoff=25) ng/mL Ur Amphetamines Screen Negative (Kpvurb=1341) ng/mL U Benzodiazepines Scrn Negative (Jyexsb=003) ng/mL Urine Cocaine Screen Negative (Cutoff= 300) ng/mL U Marijuana (THC) Screen Negative (Cutoff = 50) ng/mL Ur Drug Screen Interp See Below Ethyl Alcohol (Less than 10) mg/dL 11/10/17 Range/Units 16:12 WBC (4.3-11.1) K/mcL RBC (3.82-4.97) M/mcL Hgb (11.5-15.4) g/dL Hct (35.3-44.9) % MCV (83.0-100.0) fL MCH (28.0-33.3) pg MCHC (31.6-35.5) g/dL RDW (11.5-14.5) % Plt Count (140-400) K/mcL MPV (9.4-12.4) fL Immature Gran % (0-4) % Seg Neutrophils % % Lymphocytes % % Monocytes % % Eosinophils % % Basophils % % Neutrophils # (1.6-8.9) K/mcL Lymphocytes # (0.6-4.6) K/mcL Monocytes # (0.0-1.3) K/mcL Eosinophils # (0.0-0.6) K/mcL Basophils # (0.0-0.2) K/mcL Sodium 142 (136-145) mEq/L Potassium 3.4 L (3.5-5.1) mEq/L Chloride 108 H (98-107) mEq/L Carbon Dioxide 27 (23-29) mEq/L BUN 13 (6-20) mg/dL Creatinine 0.60 (0.60-1.20) mg/dL Est GFR ( Amer) > 60 (> 60) Est GFR (Non-Af Amer) > 60 (> 60) BUN/Creatinine Ratio 22 (6-26) Glucose 155 H (70-105) mg/dL Calculated Osmolality 297 (280-300) Calcium 8.7 (8.6-10.3) mg/dL Urine Color (Yellow) Urine Clarity (Clear) Urine pH (5.0-8.0) pH Units Ur Specific [place] (1.010-1.025) Urine Protein (Neg-Trace) mg/dL Urine Glucose (UA) (Normal) mg/dL Urine Ketones (Negative) mg/dL Urine Blood (Negative) Urine Nitrite (Negative) Urine Bilirubin (Negative) Urine Urobilinogen (Normal) mg/dL Ur Leukocyte Esterase (Negative) Salicylates < 2.5 L (15.0-30.0) mg/dL Urine Opiates Screen (Aruwco=995) ng/mL Acetaminophen < 10 L (10-20) mcg/mL Ur Barbiturates Screen (Bcqzhi=374) ng/mL Ur Phencyclidine Scrn (Cutoff=25) ng/mL Ur Amphetamines Screen (Qlrjjd=5544) ng/mL U Benzodiazepines Scrn (Sfsrov=728) ng/mL Urine Cocaine Screen (Cutoff= 300) ng/mL U Marijuana (THC) Screen (Cutoff = 50) ng/mL Ur Drug Screen Interp Ethyl Alcohol < 10 (Less than 10) mg/dL Attestation Statement - Attestation Attestation: I examined this patient and my medical decision-making was reviewed with the Resident Physician. I agree with the documented findings, disposition and treatment plan as described except to the extent set forth below. Patient to the ED complaining of suicidal thoughts. Planning to either jump off a bridge or jump in front of a semi-. She states she has never attempted suicide before. She has history of anxiety, delusions paranoia and depression. States she is off her medications because she is homeless and somebody stole them. She is, cooperative sitting up in bed in no acute distress. Focal examination is unremarkable. Plan. Medical clearance and evaluation by 1A. Patient has been accepted to [facility].
[2017-11-10 15:51] LABS: Bilirubin,Urine Negative (Negative); Blood,Urine Negative (Negative); Clarity,Urine Clear (Clear); Color,Urine Yellow (Yellow); Glucose,Urine (UA) Normal (Normal); Ketones,Urine Negative (Negative); Leukocyte Esterase,Urine Negative (Negative); Nitrite,Urine Negative (Negative); PH,Urine 6.5 pH Units (5.0-8.0); Protein,Urine Negative (Neg-Trace); Urobilinogen,Urine Normal (Normal)
--- NOTE | 2017-11-10 15:56 | Emergency Department Note ---
Disposition Clinical Impression: Suicidal ideation Disposition: Admitted As Inpatient Condition: Good Referrals: NONE,PCP [Primary Care Provider] - Forms: ED Satisfaction Letter Psych HPI - General Chief Complaint: ED Psychiatric Symptoms Stated Complaint: SI Time Seen by Provider: 11/10/17 15:26 Source: EMS Mode of arrival: EMS Limitations: no limitations Nursing Notes Reviewed: Yes Vital Signs Reviewed: Yes - History of Present Illness HPI Narrative: 47-year-old female history of paranoia, delusions, depression who presents to the ER via EMS due to suicidal ideations. She was seen today and pink slipped for vocalizing that she was thinking about walking in front of a semi-or jumping off a bridge. She reports ideations in the past however has never acted on them. She also reports auditory and visual hallucinations. She reports compliance with her medications. No alcohol or drug use. She does report that she is homeless. She denies any other complaints. Pt complaint: suicidal ideation Duration: constant History of similar episodes: Yes Improves with: none Worsens with: none Alleged intoxication: No Associated Psychiatric Symptoms: depression, suicidal ideation, auditory hallucinations, visual hallucinations Associated symptoms: Reports: denies other symptoms Traumatic symptoms: denies traumatic injury Treatments prior to arrival: none Self harm or harm to others: admits thoughts of self harm, has plan - Related Data Home Medications Medication Instructions Recorded Confirmed Alprazolam [Xanax] 1 mg PO BID PRN 01/21/15 11/10/17 Gabapentin [Neurontin] 300 mg PO BID 01/21/15 11/10/17 Fluticasone/Vilanterol [Breo 1 each IH DAILY 07/31/15 11/10/17 Ellipta 200-25 Mcg INH] Methocarbamol [Robaxin] 500 mg PO QID PRN 11/09/15 11/10/17 Gabapentin [Neurontin] 600 mg PO HS 12/17/16 11/10/17 Mirtazapine [Remeron] 15 mg PO HS 12/17/16 11/10/17 Albuterol Sulfate [Ventolin Hfa] 2 puff IH Q4H PRN 12/20/16 11/10/17 Tizanidine HCl [Zanaflex] 2 mg PO TID 11/10/17 11/10/17 Allergies Allergy/AdvReac Type Severity Reaction Status Date / Time morphine Allergy Hives Verified 06/19/17 15:31 Penicillins [PCN] Allergy Hives Verified 06/19/17 15:31 Sulfa (Sulfonamide AdvReac Abdominal Verified 06/19/17 15:31 Antibiotics) Pain All systems ED: reviewed and negative except as stated. Psychiatric: Reports: anxiety, depression, suicidal thoughts, auditory hallucinations, visual hallucinations. Denies: homicidal thoughts Past Medical History - Past Medical History Attestation: Yes The following information was validated with the patient. 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 - Social History Smoking Status: Current every day smoker Smokeless Tobacco Status: No Alcohol use: Reports: none Drug use: Reports: none Physical Exam - General Limitations: no limitations General appearance: alert, anxious - Head Head exam: atraumatic, normocephalic, normal inspection - Eye Eye exam: Present: normal appearance - ENT ENT exam: normal exam - Neck Neck exam: Present: normal inspection - Chest Chest inspection: Present: normal inspection, symmetric chest wall rise - Respiratory Respiratory exam: Present: normal lung sounds bilaterally - Cardiovascular Cardiovascular exam: Present: regular rate, normal rhythm, normal heart sounds - Abdominal Exam Abdominal exam: Present: soft, Non-Tender. Absent: tenderness, distention, rigidity - Extremities Exam Extremities exam: Present: normal inspection, full ROM - Expanded Upper Extremity Exam Shoulder exam: Present: normal inspection, full ROM Arm exam: Present: normal inspection, full ROM Elbow exam: Present: normal inspection, full ROM Forearm/Wrist exam: Present: normal inspection, full ROM Hand exam: Present: normal inspection, full ROM - Expanded Lower Extremity Exam Hip/Pelvis exam: Present: normal inspection, full ROM Upper leg exam: Present: normal inspection, full ROM Knee exam: Present: normal inspection, full ROM Lower leg exam: Present: normal inspection, full ROM Ankle exam: Present: normal inspection, full ROM Foot/toe exam: Present: normal inspection, full ROM - Neurological Exam Neurological exam: Present: alert, other (GCS 15. Nonfocal.) - Psychiatric Psychiatric exam: Present: anxious, suicidal ideation - Skin Skin exam: Present: warm, dry Course Course Narrative: Patient seen and examined. She was pink slipped heart arrival. Plan for labs for medical clearance for psychiatric evaluation. - Reevaluation(s) Reevaluation #1: Medically cleared. Accepted to our psychiatric service. Vital Signs Temperature 98.0 F 11/10/17 15:23 Pulse Rate 86 11/10/17 15:23 Respiratory Rate 14 11/10/17 15:23 Blood Pressure 124/79 11/10/17 15:23 O2 Sat by Pulse Oximetry 98 11/10/17 15:23 Temperature 98.0 F 11/10/17 15:23 Pulse Rate 86 11/10/17 15:23 Respiratory Rate 14 11/10/17 15:23 Blood Pressure 124/79 11/10/17 15:23 O2 Sat by Pulse Oximetry 98 11/10/17 15:23 Oxygen Delivery Oxygen Delivery Room Air Psych - MDM Narrative Medical decision making narrative: 47-year-old female with suicidal ideations. Medically cleared. Admitted to psych. - Lab Data Lab results reviewed: Yes I reviewed the patient's lab results. Result diagrams: 11/10/17 16:12 11/10/17 16:12 Lab Results 11/10/17 11/10/17 11/10/17 Range/Units 15:30 15:30 16:12 WBC 6.0 (4.3-11.1) K/mcL RBC 4.45 (3.82-4.97) M/mcL Hgb 14.9 (11.5-15.4) g/dL Hct 42.1 (35.3-44.9) % MCV 94.6 (83.0-100.0) fL MCH 33.5 H (28.0-33.3) pg MCHC 35.4 (31.6-35.5) g/dL RDW 11.9 (11.5-14.5) % Plt Count 210 (140-400) K/mcL MPV 10.5 (9.4-12.4) fL Immature Gran % 0.2 (0-4) % Seg Neutrophils % 49.3 % Lymphocytes % 42.8 % Monocytes % 5.0 % Eosinophils % 2.2 % Basophils % 0.5 % Neutrophils # 2.9 (1.6-8.9) K/mcL Lymphocytes # 2.6 (0.6-4.6) K/mcL Monocytes # 0.3 (0.0-1.3) K/mcL Eosinophils # 0.1 (0.0-0.6) K/mcL Basophils # 0.0 (0.0-0.2) K/mcL Sodium (136-145) mEq/L Potassium (3.5-5.1) mEq/L Chloride (98-107) mEq/L Carbon Dioxide (23-29) mEq/L BUN (6-20) mg/dL Creatinine (0.60-1.20) mg/dL Est GFR ( Amer) (> 60) Est GFR (Non-Af Amer) (> 60) BUN/Creatinine Ratio (6-26) Glucose (70-105) mg/dL Calculated Osmolality (280-300) Calcium (8.6-10.3) mg/dL Urine Color Yellow (Yellow) Urine Clarity Clear (Clear) Urine pH 6.5 (5.0-8.0) pH Units Ur Specific [place] 1.010 (1.010-1.025) Urine Protein Negative (Neg-Trace) mg/dL Urine Glucose (UA) Normal (Normal) mg/dL Urine Ketones Negative (Negative) mg/dL Urine Blood Negative (Negative) Urine Nitrite Negative (Negative) Urine Bilirubin Negative (Negative) Urine Urobilinogen Normal (Normal) mg/dL Ur Leukocyte Esterase Negative (Negative) Salicylates (15.0-30.0) mg/dL Urine Opiates Screen Negative (Mhtujy=671) ng/mL Acetaminophen (10-20) mcg/mL Ur Barbiturates Screen Negative (Rrdirz=801) ng/mL Ur Phencyclidine Scrn Negative (Cutoff=25) ng/mL Ur Amphetamines Screen Negative (Egqqhw=7057) ng/mL U Benzodiazepines Scrn Negative (Mavhqc=005) ng/mL Urine Cocaine Screen Negative (Cutoff= 300) ng/mL U Marijuana (THC) Screen Negative (Cutoff = 50) ng/mL Ur Drug Screen Interp See Below Ethyl Alcohol (Less than 10) mg/dL 11/10/17 Range/Units 16:12 WBC (4.3-11.1) K/mcL RBC (3.82-4.97) M/mcL Hgb (11.5-15.4) g/dL Hct (35.3-44.9) % MCV (83.0-100.0) fL MCH (28.0-33.3) pg MCHC (31.6-35.5) g/dL RDW (11.5-14.5) % Plt Count (140-400) K/mcL MPV (9.4-12.4) fL Immature Gran % (0-4) % Seg Neutrophils % % Lymphocytes % % Monocytes % % Eosinophils % % Basophils % % Neutrophils # (1.6-8.9) K/mcL Lymphocytes # (0.6-4.6) K/mcL Monocytes # (0.0-1.3) K/mcL Eosinophils # (0.0-0.6) K/mcL Basophils # (0.0-0.2) K/mcL Sodium 142 (136-145) mEq/L Potassium 3.4 L (3.5-5.1) mEq/L Chloride 108 H (98-107) mEq/L Carbon Dioxide 27 (23-29) mEq/L BUN 13 (6-20) mg/dL Creatinine 0.60 (0.60-1.20) mg/dL Est GFR ( Amer) > 60 (> 60) Est GFR (Non-Af Amer) > 60 (> 60) BUN/Creatinine Ratio 22 (6-26) Glucose 155 H (70-105) mg/dL Calculated Osmolality 297 (280-300) Calcium 8.7 (8.6-10.3) mg/dL Urine Color (Yellow) Urine Clarity (Clear) Urine pH (5.0-8.0) pH Units Ur Specific [place] (1.010-1.025) Urine Protein (Neg-Trace) mg/dL Urine Glucose (UA) (Normal) mg/dL Urine Ketones (Negative) mg/dL Urine Blood (Negative) Urine Nitrite (Negative) Urine Bilirubin (Negative) Urine Urobilinogen (Normal) mg/dL Ur Leukocyte Esterase (Negative) Salicylates < 2.5 L (15.0-30.0) mg/dL Urine Opiates Screen (Kpjjyw=305) ng/mL Acetaminophen < 10 L (10-20) mcg/mL Ur Barbiturates Screen (Diwhni=151) ng/mL Ur Phencyclidine Scrn (Cutoff=25) ng/mL Ur Amphetamines Screen (Iejnpm=2981) ng/mL U Benzodiazepines Scrn (Tfsbgb=981) ng/mL Urine Cocaine Screen (Cutoff= 300) ng/mL U Marijuana (THC) Screen (Cutoff = 50) ng/mL Ur Drug Screen Interp Ethyl Alcohol < 10 (Less than 10) mg/dL Psychiatric Medical Clearance - Medical Clearance Checklist Medical History: No Social History Section defined Current Vitals: Last Vital Signs Temp 98.0 F 11/10/17 15:23 Pulse 86 11/10/17 15:23 Resp 14 11/10/17 15:23 BP 124/79 11/10/17 15:23 Pulse Ox 98 11/10/17 15:23 Psychiatric Lab Panel: Drug Levels and Toxicity 11/10/17 11/10/17 15:30 16:12 Urine Opiates Screen Negative Acetaminophen < 10 L Ur Barbiturates Screen Negative Ur Phencyclidine Scrn Negative Ur Amphetamines Screen Negative U Benzodiazepines Scrn Negative Urine Cocaine Screen Negative U Marijuana (THC) Screen Negative Ethyl Alcohol < 10 Abnormal Labs: Abnormal lab results MCH 33.5 pg (28.0-33.3) H 11/10/17 16:12 Potassium 3.4 mEq/L (3.5-5.1) L 11/10/17 16:12 Chloride 108 mEq/L (98-107) H 11/10/17 16:12 Glucose 155 mg/dL (70-105) H 11/10/17 16:12 Salicylates < 2.5 mg/dL (15.0-30.0) L 11/10/17 16:12 Acetaminophen < 10 mcg/mL (10-20) L 11/10/17 16:12 Statement of Medical Clearance: I have evaluated the patient, reviewed diagnostic information, and certify that the patient's medical condition is sufficiently stable that transfer to the psychiatric unit does not pose a significant risk of deterioration.
[2017-11-10 16:01] LABS: Amphetamine Screen,Urine Negative ng/mL (Cutoff=1000); Barbiturate Screen,Urine Negative ng/mL (Cutoff=200); Benzodiazepines Screen,Urine Negative ng/mL (Cutoff=200); Cannabinoid Screen,Urine Negative ng/mL (Cutoff = 50); Cocaine Screen,Urine Negative ng/mL (Cutoff= 300); Opiate Screen,Urine Negative ng/mL (Cutoff=300); Phencyclidine Screen,Urine Negative ng/mL (Cutoff=25)
[2017-11-10 16:55] LABS: Acetaminophen < 10 mcg/mL (10-20); BUN/Creatinine Ratio 22 (6-26); Basophils % 0.5 %; Blood Urea Nitrogen 13 mg/dL (6-20); Calcium 8.7 mg/dL (8.6-10.3); Carbon Dioxide 27 mEq/L (23-29); Chloride 108 mEq/L (98-107); Eosinophils # 0.1 K/mcL (0.0-0.6); Eosinophils % 2.2 %; Ethanol < 10 mg/dL (Less than 10); Glucose 155 mg/dL (70-105); Hematocrit 42.1 % (35.3-44.9); Hemoglobin 14.9 g/dL (11.5-15.4); Immature Granulocytes % 0.2 % (0-4); Lymphocytes # 2.6 K/mcL (0.6-4.6); Lymphocytes % 42.8 %; Mean Corpuscular HGB Conc 35.4 g/dL (31.6-35.5); Mean Corpuscular Hemoglobin 33.5 pg (28.0-33.3); Mean Corpuscular Volume 94.6 fL (83.0-100.0); Mean Platelet Volume 10.5 fL (9.4-12.4); Monocytes # 0.3 K/mcL (0.0-1.3); Neutrophils # 2.9 K/mcL (1.6-8.9); Osmolality,Calculated 297 (280-300); Platelet Count 210 K/mcL (140-400); Potassium 3.4 mEq/L (3.5-5.1); Red Blood Count 4.45 M/mcL (3.82-4.97); Red Cell Distribution Width 11.9 % (11.5-14.5); Salicylate < 2.5 mg/dL (15.0-30.0); Segmented Neutrophils % 49.3 %; Sodium 142 mEq/L (136-145); eGFR For Non-African Americans > 60 (> 60)
[2017-11-10] MEDS ORDERED: Acetaminophen 325 MG TABLET PO PRN (18:41)
[2017-11-10] MEDS ORDERED: MOM Conc 10 ML UD.LIQ PO PRN (18:41)
[2017-11-10] MEDS ORDERED: *HR* LORazepam 1 MG TABLET PO PRN (18:41)
[2017-11-10] MEDS ORDERED: Haloperidol Lactate 5 MG/ML VIAL IM PRN (18:41)
[2017-11-10] MEDS ORDERED: *HR* LORazepam 2 MG/ML VIAL IM PRN (18:41)
[2017-11-11] MEDS ORDERED: Methocarbamol 500 MG TABLET PO PRN (13:25)
[2017-11-11] MEDS ORDERED: tiZANidine 4 MG TABLET PO PRN (13:26)
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
[2017-11-11] MEDS: Nicotine 21 MG PATCH.TD24 TD SCH (17:25)
[2017-11-11] MEDS: Gabapentin 300 MG CAPSULE PO SCH ×2 (18:14→20:48)
[2017-11-11] MEDS: traZODone 50 MG TABLET PO PRN (20:48)
[2017-11-11] MEDS: hydrOXYzine pamoate 25 MG CAPSULE PO PRN (20:49)
[2017-11-11] MEDS: Mirtazapine 15 MG TABLET PO SCH (20:49)
[2017-11-11] MEDS: ALPRAZolam 1 MG TABLET PO PRN (22:15)
[2017-11-12] MEDS: Gabapentin 300 MG CAPSULE PO SCH ×4 (08:50→23:20)
[2017-11-12] MEDS: Nicotine 21 MG PATCH.TD24 TD SCH (08:50)
[2017-11-12] MEDS: ALPRAZolam 1 MG TABLET PO PRN (08:53)
[2017-11-12 10:21] LABS: Estimated Average Glucose 114 mg/dl; Hemoglobin A1C 5.6 %
[2017-11-12 10:27] LABS: Chol/HDL Ratio 3.3 (0-4.9)
[2017-11-12 10:35] LABS: Thyroid Stimulating Hormone 1.346 mcIU/mL (0.340-5.600)
--- NOTE | 2017-11-12 13:47 | Psychiatry Progress Note ---
Date of Encounter: 11/12/17 Time of Encounter: 13:45 Subjective Interval history: Patient seen for follow-up. Case discussed and reviewed reported treatment team. Patient reports feeling anxious and paranoid. She believe she is not on the right medication. She reports she lost weight because she was homeless. She could not explain why she became homeless. She is reporting poor sleep. Review of Systems Psychiatric: Reports: depression, suicidal ideation, auditory hallucinations Results - Vital Signs Vital Signs: Temp Pulse Resp BP Pulse Ox 96.6 F L 76 16 106/75 98 11/12/17 09:00 11/12/17 09:00 11/12/17 09:00 11/12/17 09:00 11/10/17 15:23 - Labs Labs: Laboratory Results - last 24 hr 11/12/17 11/12/17 08:55 08:55 Glucose 82 Est Mean Plasma Glucose 114 Hemoglobin A1c 5.6 Triglycerides 161 H Cholesterol 169 LDL Cholesterol, Calc 85 VLDL Cholesterol, Calc 32 H HDL Cholesterol 52 Cholesterol/HDL Ratio 3.3 TSH 1.346 Assessment and Plan (1) Major depressive disorder, single episode, severe without psychotic features Current visit: Yes Status: Acute Plan: Continue hospitalization, Close observation, Suicide Precautions per unit protocol, Encourage participation in unit milieu, Group Therapy, Monitor sleep, Monitor appetite Additional Plan: We will add olanzapine 5 mg p.m. Benefits and side effects were discussed was a patient, she is agreeable to start and will monitor. Risks, benefits, side effects, alternatives discussed w/pt: Yes Patient agreeable to treatment: Yes Consult Discharge Plan - Plan Referrals: [facility] [Outside] (The above appointment is with Harleen Galaviz for outpatient psychiatric assessment and medication management services. Please arrive 10 minutes early to all appointments to complete the check-in process. Please bring your insurance card (or [facility] award letter) and photo ID. If you are unable to keep any scheduled appointment, 24 hour business notice of cancellation is expected. The above appointment(s) reflects first availability. You may contact the office regularly to check for cancellations that may allow you to be seen sooner. ) Psychiatry Exam - Constitutional Vitals: Temp Pulse Resp BP Pulse Ox 96.6 F L 76 16 106/75 98 11/12/17 09:00 11/12/17 09:00 11/12/17 09:00 11/12/17 09:00 11/10/17 15:23 General appearance: age & developmentally appropriate, well-groomed, well- nourished, thin - Musculoskeletal Gait: normal Station: relaxed Strength & Tone: normal for patient - Psychiatric Patient Orientation: Yes Person, Yes Time, Yes Place Level of alertness: Alert Behavior: calm, cooperative Psychomotor activity: Normal Eye Contact: Maintains Eye Contact Mood Description: Euthymic/stable Affect description: congruent with mood, full range Speech Volume: Normal Speech pattern: normal rate, normal rhythm, normal tone, fluent, spontaneous, rambling, excessive, repetetive Language & Vocabulary: consistent with education Thought Process: Linear, Goal Oriented Thought Content: No Suicidal ideation, No Homicidal ideation, No Overt delusions Perceptual Disturbances: Yes Auditory hallucinations, No Visual hallucinations Attention Span Ability: Capable of Focused Attention Memory Description: Grossly Intact Patient Reliability: Reliable Historian Fund of knowledge: Yes abstraction ability, Yes aware of current events Intelligence Estimate: Average Judgment: Limited Insight: Partial
[2017-11-12] MEDS: OLANZapine 5 MG TAB.RAPDIS PO SCH (17:59)
[2017-11-12] MEDS: Mirtazapine 15 MG TABLET PO SCH (23:21)
[2017-11-13] MEDS: ALPRAZolam 1 MG TABLET PO PRN ×2 (08:01→20:35)
[2017-11-13] MEDS: Gabapentin 300 MG CAPSULE PO SCH ×4 (08:01→20:35)
[2017-11-13] MEDS: Nicotine 21 MG PATCH.TD24 TD SCH (08:01)
--- NOTE | 2017-11-13 14:38 | Psychiatry Progress Note ---
Date of Encounter: 11/13/17 Time of Encounter: 14:36 Subjective Interval history: Patient seen for follow-up. Case discussed with treatment team. Staff report patient is medication compliant, sleep and appetite are improving. No reports of any behavioral problems or agitation. She is tolerating the new medication Zyprexa without side effects. She is reported to cooperative, pleasant, interact with peers and staff. Speech is more organized and logical. Denied any suicidal thoughts. Review of Systems Psychiatric: Reports: depression, suicidal ideation, auditory hallucinations Results - Vital Signs Vital Signs: Temp Pulse Resp BP Pulse Ox 96.6 F L 90 16 114/78 98 11/13/17 08:52 11/13/17 08:52 11/13/17 08:52 11/13/17 08:52 11/10/17 15:23 Assessment and Plan (1) Major depressive disorder, single episode, severe without psychotic features Current visit: Yes Status: Acute Plan: Continue hospitalization, Close observation, Suicide Precautions per unit protocol, Encourage participation in unit milieu, Group Therapy, Monitor sleep, Monitor appetite Risks, benefits, side effects, alternatives discussed w/pt: Yes Patient agreeable to treatment: Yes Consult Discharge Plan - Plan Referrals: [facility] [Outside] (The above appointment is with Harleen Galaviz for outpatient psychiatric assessment and medication management services. Please arrive 10 minutes early to all appointments to complete the check-in process. Please bring your insurance card (or [facility] award letter) and photo ID. If you are unable to keep any scheduled appointment, 24 hour business notice of cancellation is expected. The above appointment(s) reflects first availability. You may contact the office regularly to check for cancellations that may allow you to be seen sooner. ) Psychiatry Exam - Constitutional Vitals: Temp Pulse Resp BP Pulse Ox 96.6 F L 90 16 114/78 98 11/13/17 08:52 11/13/17 08:52 11/13/17 08:52 11/13/17 08:52 11/10/17 15:23 General appearance: age & developmentally appropriate, well-groomed, well- nourished, thin - Musculoskeletal Gait: normal Station: relaxed Strength & Tone: normal for patient - Psychiatric Patient Orientation: Yes Person, Yes Time, Yes Place Level of alertness: Alert Behavior: calm, cooperative, anxious Psychomotor activity: Normal Eye Contact: Maintains Eye Contact Mood Description: Euthymic/stable, Anxious Affect description: congruent with mood, blunted Speech Volume: Normal Speech pattern: normal rate, normal rhythm, normal tone, fluent, spontaneous, rambling Language & Vocabulary: consistent with education Thought Process: Linear, Goal Oriented Thought Content: No Suicidal ideation, No Homicidal ideation, No Overt delusions Perceptual Disturbances: No Auditory hallucinations, No Visual hallucinations Attention Span Ability: Capable of Focused Attention Memory Description: Grossly Intact Patient Reliability: Reliable Historian Fund of knowledge: Yes abstraction ability, Yes aware of current events Intelligence Estimate: Average Judgment: Limited Insight: Partial
[2017-11-13] MEDS: hydrOXYzine pamoate 25 MG CAPSULE PO PRN (14:40)
[2017-11-13] MEDS: OLANZapine 5 MG TAB.RAPDIS PO SCH (17:35)
[2017-11-13] MEDS: Mirtazapine 15 MG TABLET PO SCH (20:35)
[2017-11-14] MEDS: Nicotine 21 MG PATCH.TD24 TD SCH (08:21)
[2017-11-14] MEDS: Gabapentin 300 MG CAPSULE PO SCH ×4 (08:21→20:34)
[2017-11-14] MEDS: ALPRAZolam 1 MG TABLET PO PRN ×2 (08:21→20:34)
--- NOTE | 2017-11-14 13:09 | Psychiatry Progress Note ---
Date of Encounter: 11/14/17 Time of Encounter: 13:06 Subjective Interval history: Patient seen for follow-up. Case discussed with treatment team. Staff reports she is medication compliant and cooperative for the most part. She had a brief episode of irritability with the staff that resolved with when necessary medication. Otherwise she denies any problem with sleep or appetite. No reports of agitation or psychotic behavior. She is calm and not irritable. She denied any suicidal thoughts. 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 Review of Systems Psychiatric: Reports: depression, suicidal ideation, auditory hallucinations Results - Vital Signs Vital Signs: Temp Pulse Resp BP Pulse Ox 96.5 F L 87 18 104/63 98 11/14/17 09:00 11/14/17 09:00 11/14/17 09:11/14/17 09:00 11/10/17 15:23 Assessment and Plan (1) Major depressive disorder, single episode, severe without psychotic features Current visit: Yes Status: Acute Plan: Continue hospitalization, Close observation, Suicide Precautions per unit protocol, Encourage participation in unit milieu, Group Therapy, Monitor sleep, Monitor appetite Risks, benefits, side effects, alternatives discussed w/pt: Yes Patient agreeable to treatment: Yes Consult Discharge Plan - Plan Referrals: [facility] [Outside] - 12/28/17 3:00 pm (The above appointment is with Harleen Galaviz for outpatient psychiatric assessment and medication management services. Please arrive 10 minutes early to all appointments to complete the check-in process. Please bring your insurance card (or [facility] award letter) and photo ID. If you are unable to keep any scheduled appointment, 24 hour business notice of cancellation is expected. The above appointment(s) reflects first availability. You may contact the office regularly to check for cancellations that may allow you to be seen sooner. ) [facility] [Outside] (You are going into mental health respite at [facility] on discharge from the hospital. While there, clinic staff will open a case for you to become a client, and you will be seen daily by the clinic counselors and telehealth case manager, both individually and in group. ) Psychiatry Exam - Constitutional Vitals: Temp Pulse Resp BP Pulse Ox 96.5 F L 87 18 104/63 98 11/14/17 09:00 11/14/17 09:00 11/14/17 09:00 11/14/17 09:00 11/10/17 15:23 General appearance: age & developmentally appropriate, well-groomed, well- nourished, thin - Musculoskeletal Gait: normal Station: relaxed Strength & Tone: normal for patient - Psychiatric Patient Orientation: Yes Person, Yes Time, Yes Place Level of alertness: Alert Behavior: calm, cooperative Psychomotor activity: Normal Eye Contact: Maintains Eye Contact Mood Description: Euthymic/stable, Anxious Affect description: congruent with mood, full range Speech Volume: Normal Speech pattern: normal rate, normal rhythm, normal tone, fluent, spontaneous, limited Language & Vocabulary: consistent with education Thought Process: Linear, Goal Oriented Thought Content: No Suicidal ideation, No Homicidal ideation, No Overt delusions Perceptual Disturbances: No Auditory hallucinations, No Visual hallucinations Attention Span Ability: Capable of Focused Attention Memory Description: Grossly Intact Patient Reliability: Reliable Historian Fund of knowledge: Yes abstraction ability, Yes aware of current events Intelligence Estimate: Average Judgment: Limited Insight: Partial
[2017-11-14] MEDS: OLANZapine 5 MG TAB.RAPDIS PO SCH (17:27)
[2017-11-14] MEDS: Mirtazapine 15 MG TABLET PO SCH (20:34)
[2017-11-14] MEDS: traZODone 50 MG TABLET PO PRN (20:35)
[2017-11-14] MEDS: hydrOXYzine pamoate 25 MG CAPSULE PO PRN (20:35)
[2017-11-14] MEDS: Mag Hydrox/Al Hydrox/Simeth 30 ML UDC PO PRN (20:36)
[2017-11-14] MEDS ORDERED: Ondansetron ODT 4 MG TAB.RAPDIS SL PRN (23:35)
[2017-11-15] MEDS: Nicotine 21 MG PATCH.TD24 TD SCH (09:16)
[2017-11-15] MEDS: Gabapentin 300 MG CAPSULE PO SCH (09:17)
[2017-11-15] MEDS: ALPRAZolam 1 MG TABLET PO PRN (09:19)
[2017-11-15 09:38] VITALS: BP 104/70
--- NOTE | 2017-11-15 09:43 | Discharge Summary ---
Date of Encounter: 11/15/17 Time of Encounter: 09:35 Diagnosis - Discharge Diagnosis (1) Major depressive disorder, single episode, severe without psychotic features Status: Acute Medications - Discharge Medications Alprazolam [Xanax] 1 mg PO BID PRN 01/21/15 [History] Gabapentin [Neurontin] 300 mg PO BID 01/21/15 [History] Fluticasone/Vilanterol [Breo Ellipta 200-25 Mcg INH] 1 each IH DAILY 07/31/15 [ History] Methocarbamol [Robaxin] 500 mg PO QID PRN 11/09/15 [History] Gabapentin [Neurontin] 600 mg PO HS 12/17/16 [History] Mirtazapine [Remeron] 15 mg PO HS 12/17/16 [History] Albuterol Sulfate [Ventolin Hfa] 2 puff IH Q4H PRN 12/20/16 [History] Tizanidine HCl [Zanaflex] 2 mg PO TID 11/10/17 [History] 3 Allergy/AdvReac Type Severity Reaction Status Date / Time morphine Allergy Hives Verified 06/19/17 15:31 Penicillins [PCN] Allergy Hives Verified 06/19/17 15:31 Sulfa (Sulfonamide AdvReac Abdominal Verified 06/19/17 15:31 Antibiotics) Pain Results Procedures and tests throughout hospitalization: Completed Lab Orders Category Date Time Status Glucose Routine Lab 11/12/17 08:55 Completed Hgb A1C Routine Lab 11/12/17 08:55 Completed Lipid Panel Routine Lab 11/12/17 08:55 Completed Thyroid Stimulating Hormone Routine Lab 11/12/17 08:55 Completed Provider Date of admission: 11/10/17 17:44 Primary care physician: PCP NONE Discharging clinician: Sebastien Wilhelm Psychiatry Exam - Constitutional Vitals: Temp Pulse Resp BP Pulse Ox 98.9 F 88 12 114/84 98 11/14/17 21:00 11/14/17 21:00 11/14/17 21:00 11/14/17 21:00 11/10/17 15:23 General appearance: age & developmentally appropriate, well-groomed, well- nourished, thin - Musculoskeletal Gait: normal Station: relaxed Strength & Tone: normal for patient - Psychiatric Patient Orientation: Yes Person, Yes Time, Yes Place Level of alertness: Alert Behavior: calm, cooperative, anxious Psychomotor activity: Normal Eye Contact: Maintains Eye Contact Mood Description: Euthymic/stable Affect description: congruent with mood, full range Speech Volume: Normal Speech pattern: normal rate, normal rhythm, normal tone, fluent, spontaneous Language & Vocabulary: consistent with education Thought Process: Linear, Goal Oriented Thought Content: No Suicidal ideation, No Homicidal ideation, No Overt delusions Perceptual Disturbances: No Auditory hallucinations, No Visual hallucinations Attention Span Ability: Capable of Focused Attention Memory Description: Grossly Intact Patient Reliability: Reliable Historian Fund of knowledge: Yes abstraction ability, Yes aware of current events Intelligence Estimate: Average Judgment: Limited Insight: Partial Hospital Course Hospital course: Ms. Preston is a 47 year old female admitted for suicidal ideation and psychosis and been homeless. For details of the admission please see H&P On the unit patient was initially irritable and easily agitated and she was placed on medication including mirtazapine and Zyprexa in addition to when necessary medications. Patient reported improved sleep and appetite. She became less paranoid and more cooperative. She was medication compliant. neon sign worker was able to place patient in respite at [facility] since she is homeless. Patient was agreeable to plan. Prior to discharge patient was medically stable, not suicidal and not psychotic she is discharged in stable condition. - Time Spent with Patient Total time spent providing and/or coordinating discharge services: Less than 30 minutes Assessment and Plan - Patient/Caregiver Discharge Instructions Activity: resume usual activities as tolerated Diet: regular diet - Follow up Plan Follow up with: [facility] [Outside] - 12/28/17 3:00 pm (The above appointment is with Harleen Galaviz for outpatient psychiatric assessment and medication management services. Please arrive 10 minutes early to all appointments to complete the check-in process. Please bring your insurance card (or [facility]) and photo ID. If you are unable to keep any scheduled appointment, 24 hour business notice of cancellation is expected. The above appointment(s) reflects first availability. You may contact the office regularly to check for cancellations that may allow you to be seen sooner. ) [facility] [Outside] (You are going into mental health respite at [facility] on discharge from the hospital. While there, clinic staff will open a case for you to become a client, and you will be seen daily by the clinic counselors and case planner, both individually and in group. ) Functional capacity at discharge: independent ambulation Overall status at discharge: Stable Disposition: Home, Self-Care Quality - Multiple Antipsychotics Patient discharged on 2 or more antipsychotic medications: No Procedures - Procedures Procedures: Medication Management, Crisis Stabilization, Supportive Therapy, Group Therapy, Psychoeducational Therapy
[2017-11-15] MEDS: Mag Hydrox/Al Hydrox/Simeth 30 ML UDC PO PRN (11:23)
== END 2017-11-15 11:37 | disposition home or self-care (01) | DRG 751 ==
LOC: EMEROO 15:22 → 1ANU 17:44 → SUATTDRO 17:44 → 1ANU 17:54
PROVIDERS: ADMIT Psychiatry & Neurology Forensic Psychiatry; ATTEND Psychiatry & Neurology Psychiatry